=== PATIENT | female | born 1990 | race Two or more races ===

== ENCOUNTER 2023-01-15 23:57 | Emergency (ER) | payer OTHER, SELFPAY ==
--- NOTE | ~2023-01-15 | XR_ITS ---
EXAMINATION: CERVICAL SPINE AND RIGHT SHOULDER CLINICAL INFORMATION: Atraumatic pain COMPARISON: None available. TECHNIQUE: 5 views cervical spine, 3 views right shoulder FINDINGS: C-spine: There is reversal of the normal cervical lordosis. No prevertebral soft tissue swelling, fractures or subluxations are seen. There is some minimal disc space narrowing at C5-C6. Right shoulder: No bone, joint or soft tissue abnormality is seen. XR/XR cervical spine 3V IMPRESSION: 1. Mild degenerative changes C5-C6 with reversal of normal cervical lordosis. 2. Normal right shoulder.
--- NOTE | ~2023-01-15 | XR_ITS ---
EXAMINATION: CERVICAL SPINE AND RIGHT SHOULDER CLINICAL INFORMATION: Atraumatic pain COMPARISON: None available. TECHNIQUE: 5 views cervical spine, 3 views right shoulder FINDINGS: C-spine: There is reversal of the normal cervical lordosis. No prevertebral soft tissue swelling, fractures or subluxations are seen. There is some minimal disc space narrowing at C5-C6. Right shoulder: No bone, joint or soft tissue abnormality is seen. XR/XR shoulder RT min 2V IMPRESSION: 1. Mild degenerative changes C5-C6 with reversal of normal cervical lordosis. 2. Normal right shoulder.
[2023-01-15 23:58] VITALS: BP 177/104; PULSE 100; RESP 16; TEMP 37.1; O2SAT 100; BMI 46.5
--- NOTE | 2023-01-16 00:19 | ED_ITS ---
HPI - Extremity Problem General Chief complaint: Extremity Injury, Upper Stated complaint: Neck/Shoulder pain Time Seen by Provider: 01/16/23 00:19 Source: patient Mode of arrival: ambulatory Limitations: no limitations History of Present Illness HPI Narrative: Patient with no significant past medical history noticed pain in the right side of the neck and the shoulder since early today no known trauma says that she has been working every day pain increases on abduction of the right arm no paresthesia no muscle weakness patient has a history of hypertension for last 15 years not compliant to her medication last time patient to medication was more than a month ago supposed to be on 5 mg of amlodipine daily on arrival patient's blood pressure was elevated 177/104 patient denies any chest pain or headache or nausea/ vomiting Related Data Previous Rx's Medication Instructions Recorded amlodipine 5 mg tablet 5 mg PO DAILY #90 tabs 01/16/23 cyclobenzaprine 10 mg tablet 10 mg PO Q8H #20 tabs 01/16/23 ibuprofen 600 mg tablet 600 mg PO Q6H PRN fever or pain 01/16/23 #30 tabs Allergies Allergy/AdvReac Type Severity Reaction Status Date / Time No Known Allergies Allergy Verified 01/16/23 00:24 Review of Systems Review of Systems: Yes all other systems are reviewed and are negative [facility] Social History Social History Smoked in Last 30 Days: No Use of substances other than those prescribed or required for medical reasons: No Advance Directives: No Advance Directives Information Provided: Yes Patient : No Physical Exam Vital Signs: Vital Signs: Last Vital Signs Temp 98.7 F 01/15/23 23:58 Pulse 100 01/15/23 23:58 Resp 16 01/15/23 23:58 BP 177/104 H 01/15/23 23:58 Pulse Ox 100 01/15/23 23:58 O2 Del Method Room Air 01/15/23 23:58 BMI result Body Mass Index 46.5 Appearance: Alert. Oriented X3. No acute distress. Eyes: PERRLA, No Nystagmus ENT: Pharynx normal. Oral Mucosa moist Neck: Normal inspection. Neck supple. No midline tenderness tenderness of the right sternocleidomastoid muscle with spasm CVS: Normal heart rate and rhythm. Pulses normal. Respiratory: No respiratory distress. Equal air entry bilateral, no wheezing/rales/rhonchi Abdomen: Soft and nontender. Bowel sounds are present, no mass palpable, no CVA tenderness Skin: Skin warm and dry. Normal skin color. Normal skin turgor. Extremities: No lower extremity edema. No calf tenderness right rotator cuff tenderness painful abduction about 90 degrees good range of movement otherwise Neuro: Oriented X 3. No motor deficit. No sensory deficit.No cerebellar signs , cranial nerves II-XII intact Medications Administered Discontinued Medications Generic Name Dose Route Start Last Admin Trade Name Freq PRN Reason Stop Dose Admin Cyclobenzaprine HCl 10 mg 01/16/23 00:24 01/16/23 00:57 Cyclobenzaprine Hcl 10 Mg Tablet PO 01/16/23 00:25 10 mg ONCE ONE Administration Ketorolac Tromethamine 60 mg 01/16/23 00:24 01/16/23 00:57 Ketorolac Tromethamine 60 Mg/2 Ml Vial IM 01/16/23 00:25 60 mg ONCE ONE Administration Medical Decision Making Medical Decision Making [facility] Narrative: X-ray negative for acute smiled cervical arthritis will discharge patient home on muscle relaxants and pain medication Differential Diagnosis Differential Diagnoses: The differential diagnosis associated with the presentation includes Rotator cuff tendinitis/torticollis/painful arc syndrome Radiology Impression Discussion of test interpretation with radiology: I have reviewed the radiologist's reading. Discharge Plan Discharge Clinical Impression: Cervical arthritis, Muscle strain of right shoulder, Hypertension Patient Disposition: Home, Self-Care Instructions: Muscle Strain (ED), Chronic Hypertension (ED), Neck Pain (ED) Additional Instructions: Take pain medication and muscle relaxant as prescribed Take blood pressure medication daily Check blood pressure before taking the medicine and before going to bed it should be less than 135/85 Follow with PCP as needed [place] analg?sicos y relajantes musculares seg?n lo prescrito. [place] medicamentos para la presi?n arterial diariamente Controle la presi?n arterial antes de roxy el medicamento y antes de acostarse debe ser inferior a 135/85. Siga con PCP seg?n sea necesario Prescriptions: New cyclobenzaprine 10 mg tablet 10 mg PO Q8H Qty: 20 0RF ibuprofen 600 mg tablet 600 mg PO Q6H PRN (Reason: fever or pain) Qty: 30 0RF amlodipine 5 mg tablet 5 mg PO DAILY Qty: 90 2RF Stand Alone Forms: Work/School Release Print Language: Chilean
[2023-01-16] MEDS: Ketorolac Tromethamine 60 MG/2 ML VIAL IM (00:57)
[2023-01-16] MEDS: Cyclobenzaprine HCl 10 MG TABLET PO (00:57)
[2023-01-16] MEDS: amLODIPine Besylate 5 MG TABLET PO (01:21)
[2023-01-16 01:22] VITALS: BP 148/99
== END 2023-01-16 01:25 | disposition home or self-care (01) ==
PROVIDERS: Emergency Provider Internal Medicine; PCP Internal Medicine
DX: M47.892 Other spondylosis, cervical region (principal); S46.911A Strain of unspecified muscle, fascia and tendon at shoulder and upper arm level, right arm, initial encounter; I10 Essential (primary) hypertension; E66.9 Obesity, unspecified; Z68.42 Body mass index [BMI] 45.0-49.9, adult; X58.XXXA Exposure to other specified factors, initial encounter; Y93.9 Activity, unspecified; Y92.9 Unspecified place or not applicable; Y99.9 Unspecified external cause status
CPT/HCPCS: 72040; 73030; 96372; 99284; J1885

== ENCOUNTER 2023-02-12 08:02 | Emergency (ER) | payer OTHER, SELFPAY ==
[2023-02-12 08:12] VITALS: BP 158/106; PULSE 100; RESP 18; TEMP 36.6; O2SAT 100; BMI 44.6
--- NOTE | 2023-02-12 09:08 | ED_ITS ---
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 She takes advil with some relief. Has no followed up with her PCP MD complaint: neck pain Onset (ago): week(s) Place: work Radiation: right lateral Severity: moderate Quality: sharp and stabbing Duration: intermittent Relieving factors: medication OTC/prescribed and remaining still Exacerbating factors: movement of extremity and movement of neck Context: lifting and other (movements at work) Associated symptoms: none Treatments prior to arrival: ibuprofen Related Data Previous Rx's Medication Instructions Recorded amlodipine 5 mg tablet 5 mg PO DAILY #90 tabs 01/16/23 cyclobenzaprine 10 mg tablet 10 mg PO Q8H #20 tabs 01/16/23 ibuprofen 600 mg tablet 600 mg PO Q6H PRN fever or pain 01/16/23 #30 tabs cyclobenzaprine 10 mg tablet 10 mg PO TID PRN muscle spasm #20 02/12/23 tabs lidocaine 5 % topical patch 1 patch topical DAILY #30 ea 02/12/23 Allergies Allergy/AdvReac Type Severity Reaction Status Date / Time No Known Allergies Allergy Verified 02/12/23 08:14 Review of Systems Review of Systems: Constitutional : No Fever, No Chills ENT/Mouth : No Ear Pain, No Hoarseness, No sore throat Eyes: No Eye Pain, No Swelling, No Redness, No Foreign Body Cardiovascular : No Chest Pain, No SOB Respiratory : No Cough, No Dyspnea Gastrointestinal : No Nausea, No Vomiting, No Diarrhea, No abdominal Pain Genitourinary : No Dysuria, No Hematuria Musculoskeletal : positive neck pain, No Myalgias, No Joint Swelling Skin : No Skin lacerations, No rash Neuro : No Weakness, No Numbness, No Loss of Consciousness, No Dizziness, No Headache All other systems reviewed and are negative [facility] Past Medical History Source: old records reviewed Medical History Hypertension Cervical radiculopathy Social History Social History (Updated 02/12/23 @ 09:16 by Rae Hayward DO) Patient Tobacco Use Status: Never used Tobacco Physical Exam Vital Signs: Vital Signs: Last Vital Signs Temp 97.8 F 02/12/23 08:12 Pulse 100 02/12/23 08:12 Resp 18 02/12/23 08:12 BP 158/106 H 02/12/23 08:12 Pulse Ox 100 02/12/23 08:12 O2 Del Method Room Air 02/12/23 08:12 BMI result Body Mass Index 44.6 Appearance: Alert. Oriented X3. No acute distress. Eyes: Pupils equal, round and reactive to light. ENT: Pharynx normal. Neck: R lateral trapezius ttp reproduces pain, RUE intact NV CVS: Normal heart rate and rhythm. Pulses normal. Respiratory: No respiratory distress. Abdomen: Soft and nontender. Skin: Skin warm and dry. Normal skin color. Extremities: No lower extremity edema. Neuro: Oriented X 3. No motor deficit. No sensory deficit. Medical Decision Making Medical Decision Making MDM Narrative: 32 yo female with known cervical disease, HTN here with recurrent R neck pain from motions at work - it is over trapezius has no neuro deficits doubt vert artery dissection. At this time will start on medications, give work note and refer to PCP for PT and follow up. Given precautions to return. Differential Diagnosis Differential Diagnoses: The differential diagnosis associated with the presentation includes cervical radiculopathy, spasm, strain Admission/Observation Consideration of admission/observation: Escalation of care including admission/observation considered NV intact can be managed by PCP and treated as outpatient Independent Interpretation I performed an independent interpretation of an: Plain X-Ray Radiology Impression Discussion of test interpretation with radiology: I have reviewed the radiologist's reading. External Record Review External record reviewed: Inpatient record Chronic Conditions Patient?s care impacted by: Other Discharge Plan Discharge Clinical Impression: Cervical radiculopathy, Strain of neck muscle Patient Disposition: Home, Self-Care Instructions: Cervical Strain (DC), Cervical Radiculopathy (ED) Additional Instructions: you need to speak to your doctor about your neck pain and get physical therapy. please call today. return for numbness, weakness, fevers or any other concerns debe hablar con lynn m?dico sobre lynn dolor de fabián y recibir fisioterapia. por favor maria a montesinosy. Regrese por entumecimiento, debilidad, fiebre o cualquier otra inquietud. Prescriptions: New cyclobenzaprine 10 mg tablet 10 mg PO TID PRN (Reason: muscle spasm) Qty: 20 0RF lidocaine 5 % adhesive patch,medicated 1 patch topical DAILY Qty: 30 0RF Rx Instructions: leave on most painful area for up to 12 hrs No Action cyclobenzaprine 10 mg tablet 10 mg PO Q8H Qty: 20 0RF ibuprofen 600 mg tablet 600 mg PO Q6H PRN (Reason: fever or pain) Qty: 30 0RF amlodipine 5 mg tablet 5 mg PO DAILY Qty: 90 2RF Stand Alone Forms: Work/School Release Print Language: Bulgarian
== END 2023-02-12 09:21 | disposition home or self-care (01) ==
PROVIDERS: Emergency Provider Emergency Medicine; PCP Internal Medicine
DX: M54.12 Radiculopathy, cervical region (principal); S16.1XXA Strain of muscle, fascia and tendon at neck level, initial encounter; X58.XXXA Exposure to other specified factors, initial encounter; Y93.9 Activity, unspecified; Y92.9 Unspecified place or not applicable; Y99.9 Unspecified external cause status; M54.2 Cervicalgia; I10 Essential (primary) hypertension
CPT/HCPCS: 99282; 99283

== ENCOUNTER 2023-04-05 23:49 | Emergency (ER) | payer OTHER, SELFPAY ==
[2023-04-06 00:22] VITALS: BP 169/99; PULSE 104; RESP 20; TEMP 36.1; O2SAT 98; BMI 46.3
[2023-04-06 02:08] VITALS: BP 184/116; PULSE 102; RESP 19; TEMP 37.1; O2SAT 98
--- NOTE | 2023-04-06 02:48 | PC.NURSE ---
training officer at bedside. pt reporting onset of cough, chest pain, chest tightness and sore throat for one day. pt denies being around sick contacts. pt denies phlegm with cough. pt denies n/v/d. pt lung sounds clear bilaterally.
[2023-04-06 02:53] VITALS: O2SAT 98
[2023-04-06 03:50] VITALS: BP 166/74; PULSE 101; RESP 16; TEMP 37.2; O2SAT 97
--- NOTE | 2023-04-06 05:04 | ED.URI ---
HPI - URI/Sore Throat General Chief Complaint: Upper Respiratory Symptoms Stated Complaint: Upper Resp Time Seen by Provider: 04/06/23 04:59 Source: patient Mode of arrival: ambulatory Limitations: no limitations History of Present Illness HPI Narrative: Patient comes to the emergency room complaining of subjective fever, coughing, nasal congestion. No vomiting or diarrhea. No shortness of breath other than the nasal congestion Related Data Previous Rx's Medication Instructions Recorded amlodipine 5 mg tablet 5 mg PO DAILY #90 tabs 01/16/23 cyclobenzaprine 10 mg tablet 10 mg PO Q8H #20 tabs 01/16/23 ibuprofen 600 mg tablet 600 mg PO Q6H PRN fever or pain 01/16/23 #30 tabs cyclobenzaprine 10 mg tablet 10 mg PO TID PRN muscle spasm #20 02/12/23 tabs lidocaine 5 % topical patch 1 patch topical DAILY #30 ea 02/12/23 fluticasone propionate 50 1 spray intranasal Q12H #16 grams 04/06/23 mcg/actuation nasal spray,suspension (Flonase Allergy Relief) guaifenesin 400 mg tablet 400 mg PO Q4H PRN cough #14 tabs 04/06/23 Allergies Allergy/AdvReac Type Severity Reaction Status Date / Time No Known Allergies Allergy Verified 02/12/23 08:14 Review of Systems Review of Systems: Constitutional : No Weight loss complaining of subjective fever and chills, No Night Sweats, No Fatigue, No Malaise ENT/Mouth : No Hearing loss, No Ear Pain, complaining of Nasal Congestion, No Sinus Pain, No Hoarseness, No sore throat, No Rhinorrhea, No Swallowing Difficulty Eyes: No Eye Pain, No Swelling, No Redness, No Foreign Body, No Discharge, No Vision Changes Cardiovascular : No Chest Pain, No SOB, No Dyspnea on Exertion, No Orthopnea, No Edema, No Palpitations Respiratory : No Cough, No Sputum, No Wheezing, No Smoke Exposure, No Dyspnea Gastrointestinal : No Nausea, No Vomiting, No Diarrhea, No Constipation, No abdominal Pain, No Hematochezia, No Melena Genitourinary : no irregular bleeding, No Dysuria, No Urinary Frequency, No Hematuria, No Urinary Incontinence, No Urgency, No Flank Pain, No Urinary Flow Changes, No Hesitancy Musculoskeletal : No joint pain, No Myalgias, No Joint Swelling Skin : No Skin Lesions, No rash Neuro : No Weakness, No Numbness, No Paresthesias, No Loss of Consciousness, No Dizziness, complaining of head pressure, mild Headache Psych : No Anxiety/Panic, No Depression, No SI/HI/AH/VH, No Social Issues, Heme/Lymph: No Bruising, No Bleeding,No Lymphadenopathy Endocrine : No Polyuria, No Polydipsia, No Temperature Intolerance PMFSH Past Medical History Onset Date is defined in the Problem List Problems that require an onset date and time if occurred within 24 hrs of arrival to the ED Aortic Dissection and Rupture; Neurologic impairment; Cardiopulmonary Arrest; Endotracheal Intubation; Insertion or Replacement of Mechanical Circulatory Assist Device Medical History Hypertension Cervical radiculopathy Social History Social History (Updated 02/12/23 @ 09:16 by Rae Hayward DO) Alcohol intake: current Alcohol intake frequency: a few times a month Alcohol type: beer Patient Tobacco Use Status: Never used Tobacco Smoked in Last 30 Days: No Use of substances other than those prescribed or required for medical reasons: No Advance Directives: No Advance Directives Information Provided: No Patient : No Physical Exam Vital Signs: Vital Signs: Last Vital Signs Temp 98.9 F 04/06/23 03:50 Pulse 101 H 04/06/23 03:50 Resp 16 04/06/23 03:50 BP 166/74 H 04/06/23 03:50 Pulse Ox 97 04/06/23 03:50 O2 Del Method Room Air 04/06/23 03:50 BMI result Body Mass Index 46.3 Const: Other: Appearance: Alert. Oriented X3. No acute distress. Eyes: Pupils equal, round and reactive to light. ENT: Pharynx normal. Positive nasal congestion Neck: Normal inspection. Neck supple. No lymph nodes noted. No crepitus CVS: Normal heart rate and rhythm. Pulses normal. Normal S1 and S2 Respiratory: No respiratory distress. Breath sounds normal. No Wheezing. No rales Abdomen: Soft and nontender. No rigidity. No distention. Skin: Skin warm and dry. Normal skin color. Normal skin turgor. Extremities: No lower extremity edema. No Lacerations. No Rash Neuro: Oriented X 3. No motor deficit. No sensory deficit. Moving all extremities. No slurred speech. CN 2 through 12 grossly intact Psych: calm, cooperative, normal affect Medical Decision Making Medical Decision Making MDM Narrative: -patient's lungs are completely clear -my interpretation of labs: Negative for flu RSV and COVID -my interpretation of chest x-ray: No infiltrate Differential Diagnosis Differential Diagnoses: The differential diagnosis associated with the presentation includes (Viral URI) Lab Data [facility] Lab Attestation statement: I reviewed the patient's lab results. Labs: Lab Results 04/06/23 Range/Units 00:38 Influenza Type A (PCR) NEGATIVE (Negative) Influenza Type B (PCR) NEGATIVE (Negative) RSV RNA Qual (PCR) NEGATIVE (Negative) SARS-CoV-2 RNA (RT-PCR) NEGATIVE (Negative) Radiology Impression Discussion of test interpretation with radiology: I have reviewed the radiologist's reading. Radiologist Impression: No significant abnormality is noted involving the heart, lungs, mediastinum, bony thorax or soft tissues. XR/XR chest 2V IMPRESSION: Unremarkable examination. Discharge Plan Discharge Clinical Impression: Acute viral bronchitis Patient Disposition: Home, Self-Care Instructions: Acute Bronchitis (ED) Additional Instructions: Please follow-up with your primary care physician tomorrow. If you have any worsening or new symptoms, please return to the emergency room or call 911 Prescriptions: New guaifenesin 400 mg tablet 400 mg PO Q4H PRN (Reason: cough) Qty: 14 0RF fluticasone propionate [Flonase Allergy Relief] 50 mcg/actuation spray,suspension 1 spray intranasal Q12H Qty: 16 0RF Rx Instructions: administer into each nostril No Action cyclobenzaprine 10 mg tablet 10 mg PO Q8H Qty: 20 0RF ibuprofen 600 mg tablet 600 mg PO Q6H PRN (Reason: fever or pain) Qty: 30 0RF amlodipine 5 mg tablet 5 mg PO DAILY Qty: 90 2RF cyclobenzaprine 10 mg tablet 10 mg PO TID PRN (Reason: muscle spasm) Qty: 20 0RF lidocaine 5 % adhesive patch,medicated 1 patch topical DAILY Qty: 30 0RF Rx Instructions: leave on most painful area for up to 12 hrs Stand Alone Forms: Work/School Release
--- NOTE | 2023-04-06 05:17 | PC.NURSE ---
Took over care at 3:15am, reivewed discharge instructions with pt, pt verbalized understanding, no sign of distress upon discharge.
== END 2023-04-06 05:18 | disposition home or self-care (01) ==
PROVIDERS: Emergency Provider Emergency Medicine
DX: J20.8 Acute bronchitis due to other specified organisms (principal); R05.9 Cough, unspecified; Z20.822 Contact with and (suspected) exposure to COVID-19; Z20.828 Contact with and (suspected) exposure to other viral communicable diseases
CPT/HCPCS: 0241U; 71046; 99283; 99284

== ENCOUNTER → 2023-04-18 14:32 | Outpatient (BNVA) | payer OTHER, SELFPAY | PROVIDERS: Visit Provider Physician Assistant Surgical ==

== ENCOUNTER 2023-05-06 19:56 | Emergency (ER) | payer OTHER, SELFPAY ==
--- NOTE | ~2023-05-06 | US_ITS ---
EXAMINATION: US OBSTETRICAL ULTRASOUND CLINICAL INFORMATION: , lower abdominal pain COMPARISON: None available. TECHNIQUE: Sonographic evaluation of the pelvis was performed transabdominally and transvaginally. FINDINGS: Uterus measures 12.4 x 6.4 x 7.3 cm. There is a fluid collection along the endometrium measuring 1.1 x 0.6 x 1.2 cm which appears to contain a yolk sac, therefore favored to represent a gestational sac with mean diameter of 1.0 cm (5 weeks 4 days gestational age). No pole is seen at this time. The right ovary measures 4.4 x 2.6 x 2.9 cm. Cystic structure in the right ovary measuring up to 2.9 cm is favored to represent a corpus luteal cyst. The left ovary measures 3.3 x 2.3 x 2.8 cm and appears unremarkable. No free fluid is seen. US/US OB pelvic and transvaginal IMPRESSION: Structure likely representing a gestational sac along the endometrium, with mean diameter corresponding to gestational age of 5 weeks 4 days (estimated date of delivery 01/03/2024). No pole is seen at this time, which may be due to the early stage of . Short-term follow-up is recommended to assess for development of a pole.
[2023-05-06 20:01] VITALS: BP 154/85; PULSE 97; RESP 18; TEMP 36.4; O2SAT 99; BMI 47.1
[2023-05-06 20:27] LABS: MANUAL DIFF FLAG NO
[2023-05-06 20:28] LABS: Basophils Percent Auto 0.5 % (0-2); Eosinophils Absolute Auto 0.2 X10*3/uL (0.0-0.4); Eosinophils Percent Auto 2.2 % (0-4); Hematocrit 35.4 % (37.0-47.0); Hemoglobin 11.4 g/dl (12.0-16.0); Imm Gran Abs Auto 0.02 X10*3/uL (0.00-0.03); Imm Gran Pct Auto 0.3 % (0.0-0.4); Lymphocytes Absolute Auto 2.1 X10*3/uL (1.2-4.9); Mean Corpuscular HGB Conc 32.2 g/dl (31.0-35.0); Mean Corpuscular Hemoglobin 26.6 pg (27.0-33.0); Mean Corpuscular Volume 82.5 fL (80.0-98.0); Mean Platelet Volume 12.3 fL (9.4-12.3); Monocytes Absolute Auto 0.4 X10*3/uL (0.1-1.2); Monocytes Percent Auto 5.2 % (2-11); Neutrophils Absolute Auto 4.7 x10*3/uL (2.0-8.3); Neutrophils Percent Auto 63.8 % (45-73); Platelet Count 207 X10*3/uL (160-400); Red Blood Count 4.29 X10*6/uL (4.20-5.50); White Blood Count 7.3 X10*3/uL (4.8-10.8)
[2023-05-06 20:30] LABS: Appearance Urine Clear; Color Urine Yellow; Glucose Urine UA Negative (Negative); Leukocyte Esterase Urine Negative (Negative); Nitrite Urine Negative (Negative); Urine Blood Negative (Negative); Urine Ketones Negative (Negative); Urine Protein Negative (Neg-Trace)
[2023-05-06 20:31] LABS: UPreg QC Valid YES; Urine Pregnancy POSITIVE (NEGATIVE)
[2023-05-06 20:42] LABS: Alanine Aminotransferase 17 U/L (0-31); Alkaline Phosphatase 86 U/L (39-117); Anion Gap 10 (12-20); Aspartate Amino Transferase 13 U/L (5-31); Bilirubin Direct < 0.2 mg/dL (0.0-0.5); Bilirubin Total 0.2 mg/dL (0.0-1.0); Blood Urea Nitrogen 10 mg/dL (9-16); Calcium 8.8 mg/dL (8.4-10.2); Carbon Dioxide 24 mmol/L (22-29); Chloride 108 mmol/L (96-108); Creatinine Clr Calc Pharmacy 137.8; Estimated Glomerular Filt Rate > 60; Glucose Random 95 mg/dL (60-115); Lipase 20 U/L (8-78); Potassium 3.8 mmol/L (3.3-5.1); Sodium 138 mmol/L (135-145); Total Protein 7.3 g/dL (6.5-8.0)
[2023-05-07 00:05] VITALS: BP 155/84; PULSE 95; RESP 18; TEMP 36.5; O2SAT 100
[2023-05-07 02:33] VITALS: BP 163/97; PULSE 103; RESP 16; TEMP 36.6; O2SAT 100
--- NOTE | 2023-05-07 02:34 | ED_ITS ---
HPI - Abdominal Pain General Chief Complaint: Abdominal Pain Stated Complaint: abd pain,nausea Time Seen by Provider: 05/07/23 02:26 Source: patient and medical interpreter Mode of arrival: ambulatory Limitations: no limitations History of Present Illness HPI narrative: 32 yo female with PMH of HTN no surgeries LMP 03/28 states she is with one living child is not very forthcoming with prior OB history presents with late LMP and lower suprapubic pain that came out of nowhere that started 1 hour prior to coming to the ER she denies bleeding, hx of ovarian cyst or ectopic . MD elicited complaint: abdominal pain Pertinent past history: other (+ test in ED) Onset (ago): day(s) (yesterday 8pm) Pain Consistency: constant Location: suprapubic Severity: moderate Quality: aching Radiation: none Migration to: no migration Exacerbating factors: movement Relieving factors: nothing Context: other (late on menses) Associated symptoms: denies other symptoms Related Data Previous Rx's Medication Instructions Recorded amlodipine 5 mg tablet 5 mg PO DAILY #90 tabs 01/16/23 cyclobenzaprine 10 mg tablet 10 mg PO Q8H #20 tabs 01/16/23 ibuprofen 600 mg tablet 600 mg PO Q6H PRN fever or pain 01/16/23 #30 tabs cyclobenzaprine 10 mg tablet 10 mg PO TID PRN muscle spasm #20 02/12/23 tabs lidocaine 5 % topical patch 1 patch topical DAILY #30 ea 02/12/23 fluticasone propionate 50 1 spray intranasal Q12H #16 grams 04/06/23 mcg/actuation nasal spray,suspension (Flonase Allergy Relief) guaifenesin 400 mg tablet 400 mg PO Q4H PRN cough #14 tabs 04/06/23 vitamin#30 30 mg iron-10 1 cap PO DAILY #30 caps 05/07/23 mg iron-folic acid 1 mg-omg3 capsule Allergies Allergy/AdvReac Type Severity Reaction Status Date / Time No Known Allergies Allergy Verified 02/12/23 08:14 Review of Systems Review of Systems Constitutional : No Weight loss, No Fever, No Chills ENT/Mouth : No sore throat, No Rhinorrhea Eyes: No Swelling, No Redness Cardiovascular : No Chest Pain, No SOB, NoEdema Respiratory : No Cough, No Sputum, No Wheezing Gastrointestinal : no Nausea, no Vomiting, no Diarrhea, positive abdominal Pain, No Hematochezia, No Melena Genitourinary : No Dysuria, No Urinary Frequency, No Hematuria, No Urgency Musculoskeletal : No joint pain, No Myalgias, No Joint Swelling Skin : No Skin Lesions, No rash Neuro : No Weakness, No Numbness, No Dizziness, No Headache Psych : No Anxiety/Panic, No Depression All other systems reviewed and are negative. [facility] Past Medical History Attestation statement: The following information was validated with the patient. Source: old records reviewed Medical History Hypertension Cervical radiculopathy Social History Social History Alcohol intake: current Alcohol intake frequency: a few times a month Alcohol type: beer Patient Tobacco Use Status: Never used Tobacco Advance Directives: No Advance Directives Information Provided: No Physical Exam ED Vital Signs: Vital Signs - 24 hr 05/06/23 20:01 05/07/23 00:05 05/07/23 02:33 Temperature 97.6 F 97.7 F 97.9 F Pulse Rate 97 95 103 H Respiratory Rate 18 18 16 Blood Pressure 154/85 H 155/84 H 163/97 H Pulse Oximetry 99 100 100 Oxygen Delivery Method Room Air Room Air Room Air BMI result Body Mass Index 47.1 Appearance: Alert. Oriented X3. No acute distress. Eyes: Pupils equal, round and reactive to light. ENT: Pharynx normal. Neck: Normal inspection. Neck supple. CVS: Normal heart rate and rhythm. Pulses normal. Respiratory: No respiratory distress. Breath sounds normal. Abdomen: Soft and mild epigastric ttp no rebound Skin: Skin warm and dry. Normal skin color. Normal skin turgor. Extremities: No lower extremity edema. No calf ttp Neuro: Oriented X 3. No motor deficit. No sensory deficit. Medical Decision Making Medical Decision Making MDM Narrative: 32 yo female with PMH of HTN, no prior ectopic no ovarian cyst here with c/o lower abdominal pain that started out of nowhere around 8pm VS are stable H/H is stable will need UA, quant and pelvic US to evaluate for cyst/ectopic Differential Diagnosis Differential Diagnoses: The differential diagnosis associated with the presentation includes UTI, cyst, ectopic Admission/Observation Consideration of admission/observation: Escalation of care including admission/observation considered H/H stable no ectopic Lab Data MDM Lab Attestation statement: I reviewed the patient's lab results. 05/06/23 20:16 05/06/23 20:16 Labs: Lab Results 05/06/23 Range/Units 20:16 WBC 7.3 (4.8-10.8) X10*3/uL RBC 4.29 (4.20-5.50) X10*6/uL Hgb 11.4 L (12.0-16.0) g/dl Hct 35.4 L (37.0-47.0) % MCV 82.5 (80.0-98.0) fL MCH 26.6 L (27.0-33.0) pg MCHC 32.2 (31.0-35.0) g/dl RDW 13.0 (11.0-16.0) % Plt Count 207 (160-400) X10*3/uL MPV 12.3 (9.4-12.3) fL Immature Gran % (Auto) 0.3 (0.0-0.4) % Neut % (Auto) 63.8 (45-73) % Lymph % (Auto) 28.0 (20-40) % [place] % (Auto) 5.2 (2-11) % Eos % (Auto) 2.2 (0-4) % Baso % (Auto) 0.5 (0-2) % Lymph # (Auto) 2.1 (1.2-4.9) X10*3/uL [place] # (Auto) 0.4 (0.1-1.2) X10*3/uL Eos # (Auto) 0.2 (0.0-0.4) X10*3/uL Baso # (Auto) 0.0 (0.0-0.2) X10*3/uL Abs Immat Gran (auto) 0.02 (0.00-0.03) X10*3/uL Absolute Neuts (auto) 4.7 (2.0-8.3) x10*3/uL Absolute Nucleated RBC 0.000 (0.0-0.012) X10*3/uL Nucleated RBC % (auto) 0.0 (0.0-0.2) /100WBC Sodium 138 (135-145) mmol/L Potassium 3.8 (3.3-5.1) mmol/L Chloride 108 (96-108) mmol/L Carbon Dioxide 24 (22-29) mmol/L Anion Gap 10 L (12-20) BUN 10 (9-16) mg/dL Creatinine 0.75 (0.5-1.4) mg/dL Estim Creat Clear Calc 137.8 Estimated GFR > 60 Random Glucose 95 (60-115) mg/dL Calcium 8.8 (8.4-10.2) mg/dL Total Bilirubin 0.2 (0.0-1.0) mg/dL Direct Bilirubin < 0.2 (0.0-0.5) mg/dL AST 13 (5-31) U/L ALT 17 (0-31) U/L Alkaline Phosphatase 86 (39-117) U/L Total Protein 7.3 (6.5-8.0) g/dL Albumin 4.0 (3.5-5.0) g/dL Lipase 20 (8-78) U/L Beta HCG, Quant 6198 mIU/mL Urine Color Yellow Urine Appearance Clear Urine pH 8.0 (5.0-9.0) Ur Specific [place] 1.020 (1.005-1.025) Urine Protein Negative (Neg-Trace) mg/dL Urine Glucose (UA) Negative (Negative) mg/dL Urine Ketones Negative (Negative) mg/dL Urine Blood Negative (Negative) Urine Nitrite Negative (Negative) Ur Leukocyte Esterase Negative (Negative) Urine Test POSITIVE H (NEGATIVE) Independent Interpretation I performed an independent interpretation of an: Ultrasound (cyst early ges sac) Radiology Impression Discussion of test interpretation with radiology: I have reviewed the radiologist's reading. External Record Review External record reviewed: Inpatient record Medications Administered Discontinued Medications Generic Name Dose Route Start Last Admin Trade Name Freq PRN Reason Stop Dose Admin Acetaminophen 975 mg 05/07/23 02:33 05/07/23 02:37 Acetaminophen 325 Mg Tablet PO 05/07/23 02:34 975 mg ONCE ONE Administration Discharge Plan Discharge Clinical Impression: Early stage of Ovarian cyst Qualifiers: Laterality: right Qualified Code(s): N83.201 - Unspecified ovarian cyst, right side Patient Disposition: Home, Self-Care Instructions: (ED), Ovarian Cyst (ED) Additional Instructions: return for worsening pain, vaginal bleeding, fainting, dizziness call [facility] to get OBGYN appointment - repeat hormone level and US in the next 5 days. Regrese si el dolor empeora, sangrado vaginal, desmayos, mareos. Llame a Stephanie para programar david mamta con el obstetra y ginec?logo; repita el nivel hormonal y los EE. UU. en los pr?ximos 5 d?as quant was 6198 FINDINGS: Uterus measures 12.4 x 6.4 x 7.3 cm. There is a fluid collection along the endometrium measuring 1.1 x 0.6 x 1.2 cm which appears to contain a yolk sac, therefore favored to represent a gestational sac with mean diameter of 1.0 cm (5 weeks 4 days gestational age). No pole is seen at this time. The right ovary measures 4.4 x 2.6 x 2.9 cm. Cystic structure in the right ovary measuring up to 2.9 cm is favored to represent a corpus luteal cyst. The left ovary measures 3.3 x 2.3 x 2.8 cm and appears unremarkable. No free fluid is seen. US/US OB pelvic and transvaginal IMPRESSION: Structure likely representing a gestational sac along the endometrium, with mean diameter corresponding to gestational age of 5 weeks 4 days (estimated date of delivery 01/03/2024). No pole is seen at this time, which may be due to the early stage of . Short-term follow-up is recommended to assess for development of a pole. Prescriptions: New PNV #[id number] acid-omega3 30 mg iron-10 mg iron-1 mg capsule 1 cap PO DAILY Qty: 30 2RF No Action cyclobenzaprine 10 mg tablet 10 mg PO Q8H Qty: 20 0RF ibuprofen 600 mg tablet 600 mg PO Q6H PRN (Reason: fever or pain) Qty: 30 0RF amlodipine 5 mg tablet 5 mg PO DAILY Qty: 90 2RF cyclobenzaprine 10 mg tablet 10 mg PO TID PRN (Reason: muscle spasm) Qty: 20 0RF lidocaine 5 % adhesive patch,medicated 1 patch topical DAILY Qty: 30 0RF Rx Instructions: leave on most painful area for up to 12 hrs guaifenesin 400 mg tablet 400 mg PO Q4H PRN (Reason: cough) Qty: 14 0RF fluticasone propionate [Flonase Allergy Relief] 50 mcg/actuation spray,suspension 1 spray intranasal Q12H Qty: 16 0RF Rx Instructions: administer into each nostril Print Language: [place]
[2023-05-07] MEDS: Acetaminophen 325 MG TABLET 975 MG PO (02:37)
[2023-05-07 02:49] LABS: HCG Quantitative 6198 mIU/mL
[2023-05-07 05:19] VITALS: BP 132/82; PULSE 82; RESP 20; TEMP 36.8; O2SAT 99
--- NOTE | 2023-05-07 05:21 | PC.NURSE ---
pt ambulatory at discharge. vss. pt partner present at bedside. outside salesman utilized at discharge. pt provided with discharge packet pt verbalized understanding of discharge plan
== END 2023-05-07 05:23 | disposition home or self-care (01) ==
PROVIDERS: Emergency Provider Emergency Medicine
DX: N83.201 Unspecified ovarian cyst, right side (principal); R10.2 Pelvic and perineal pain; Z79.899 Other long term (current) drug therapy
CPT/HCPCS: 36415; 76801; 76817; 80048; 80076; 81003; 81025; 83690; 84702; 85025; 99284

== ENCOUNTER 2023-07-12 18:10 | Emergency (ER) | payer OTHER, SELFPAY ==
--- NOTE | ~2023-07-12 | US_ITS ---
EXAMINATION: OBSTETRIC ULTRASOUND - SECOND TRIMESTER CLINICAL INFORMATION: 15 weeks with pain. COMPARISON: Pelvic ultrasound 05/07/2023. TECHNIQUE: Transabdominal imaging of the uterus was performed utilizing garcia scale and color doppler technique, with m-mode imaging. FINDINGS: Single live intrauterine fetus with cardiac activity detected at 149 bpm. movement is present. Posterior placenta. No perigestational hemorrhage. Cervix measures 4.4 cm and is closed. This examination was not obtained for evaluation of a detailed anatomy nor placental morphology. Some of the biometric measurements obtained are as follows: Biparietal diameter: 2.77 cm corresponding to gestational age of 15 weeks. Head circumference: 11.14 cm corresponding to gestational age of 15 weeks and 3 days. Abdominal circumference: 8.98 cm corresponding to a gestational age of 15 weeks and 2 days. Femur length: 1.73 cm corresponding to gestational age of 15 weeks and 1 day. US/US OB limited IMPRESSION: * Single live intrauterine fetus with estimated gestational age by ultrasound of 15 weeks and 1 day. * This evaluation was not targeted for a detail evaluation of the anatomy nor placental morphology, for which referral to a maternofetal specialist is recommended as clinically warranted.
[2023-07-12 18:36] VITALS: BP 156/81; PULSE 112; RESP 16; TEMP 37; O2SAT 100; BMI 49.2
--- NOTE | 2023-07-12 18:36 | ED.FEMALEGU ---
HPI - Female Genitourinary General Chief complaint: Vaginal Bleeding Stated complaint: Pelvic Pain Time Seen by Provider: 07/12/23 20:42 Source: patient, RN notes reviewed and old records reviewed Mode of arrival: ambulatory Limitations: no limitations History of Present Illness HPI Narrative: 32-year-old female presents for evaluation of lower abdominal/pelvic pain. Patient reports that she is approximately 15 weeks . She states that she is She reports that she had a very small amount of bloody vaginal discharge prior to arrival She still complains of 7/10 lower abdominal pain Patient states that she had 3 previous miscarriages and she is concerned that she is having another Denies any fevers, chills, nausea, vomiting No other complaints or concerns at this time Related Data Previous Rx's ?Medication ?Instructions ?Recorded amlodipine 5 mg tablet 5 mg PO DAILY #90 tabs 01/16/23 cyclobenzaprine 10 mg tablet 10 mg PO Q8H #20 tabs 01/16/23 ibuprofen 600 mg tablet 600 mg PO Q6H PRN fever or pain 01/16/23 #30 tabs cyclobenzaprine 10 mg tablet 10 mg PO TID PRN muscle spasm #20 02/12/23 tabs lidocaine 5 % topical patch 1 patch topical DAILY #30 ea 02/12/23 fluticasone propionate 50 1 spray intranasal Q12H #16 grams 04/06/23 mcg/actuation nasal spray,suspension (Flonase Allergy Relief) guaifenesin 400 mg tablet 400 mg PO Q4H PRN cough #14 tabs 04/06/23 vitamin#30 30 mg iron-10 1 cap PO DAILY #30 caps 05/07/23 mg iron-folic acid 1 mg-omg3 capsule Allergies Allergy/AdvReac Type Severity Reaction Status Date / Time No Known Allergies Allergy Verified 07/12/23 18:40 Review of Systems Constitutional: Constitutional: Denies body ache(s), Denies chills and Denies fever(s) Eyes: Eyes: Denies blurry vision ENT: Denies sore throat Cardiovascular: Cardiovascular: Denies chest pain and Denies dyspnea Respiratory: Respiratory: Denies cough and Denies dyspnea Gastrointestinal: Gastrointestinal: Reports abdominal pain, Denies nausea and Denies vomiting Genitourinary: Genitourinary: Reports vaginal discharge (Small amount of blood) Musculoskeletal: Musculoskeletal: Denies back pain Integumentary/Breasts: Skin/Breast: Denies rash PMFSH Past Medical History Medical History Hypertension Cervical radiculopathy Social History Social History Alcohol intake: never Patient Tobacco Use Status: Never used Tobacco Smoked in Last 30 Days: No Use of substances other than those prescribed or required for medical reasons: No Advance Directives: No Advance Directives Information Provided: No Patient : Yes Physical Exam Vital Signs: Vital Signs: Last Vital Signs Temp 97.9 F 07/12/23 20:47 Pulse 111 H 07/12/23 20:47 Resp 19 07/12/23 20:47 BP 159/88 H 07/12/23 20:47 Pulse Ox 100 07/12/23 20:47 O2 Del Method Room Air 07/12/23 20:47 BMI result Body Mass Index 49.2 Const: General: healthy appearing, comfortable, no acute distress, alert and awake Nutritional Appearance: well nourished Orientation/consciousness: patient oriented x3 HEENT: Head: Yes normocephalic and Yes atraumatic Eyes: Eyelids: Yes eyelids normal Conjunctivae: conjunctivae normal Sclerae: sclerae normal Corneas: corneas normal Pupils: Equal, round and reactive pupils present EOM: EOMs intact bilaterally Neck: Neck: Yes full ROM Resp: Effort & Inspection: normal respiratory effort, able to speak in complete sentences and not labored GI: Inspection: No distended Palpation (GI): Soft to palpation, not firm, Tenderness to palpation present (GI) suprapubicly, no guarding and not rigid Skin: General skin exam: elasticity normal Neuro: General: patient oriented x3 Cranial nerves: Yes Equal, round and reactive pupils present and Yes Bilaterally intact EOM present Cognition (Neuro): normal cognition Course Course Course Narrative: This is a Rapid Medical Examination (RME) in triage, full HPI, ROS, assessment and plan per primary provider in the Main ED. 32 yo German speaking female who is currently 15 weeks presents to the ER for evaluation of worsening, intermittent pelvic pains that started yesterday. Currently 7/10 and has been lasting 30+ minutes. No urinary symptoms. Very small amount of vaginal bleeding. 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 Plan: pelvic U/S, labs Medications Administered Discontinued Medications Generic Name Dose Route Start Last Admin Trade Name Racquel PRN Reason Stop Dose Admin Acetaminophen 975 mg 07/12/23 20:56 07/12/23 21:30 Acetaminophen 325 Mg Tablet PO 07/12/23 20:57 975 mg ONCE ONE Administration Medical Decision Making Medical Decision Making [facility] Narrative: 32-year-old female presents for evaluation lower abdominal pain/pelvic pain as well as bloody vaginal discharge. Given her history of multiple miscarriages there is some concern for miscarriage. [place] [address]. No other electrolyte abnormalities. She has no leukocytosis. She has a mild anemia which is likely related to the . There is no left shift. UA and ultrasound pending. Of note, the patient is blood type O negative Differential Diagnosis Differential Diagnoses: The differential diagnosis associated with the presentation includes Yoni Hernandez contractions Miscarriage Threatened miscarriage Lab Data [facility] Lab Attestation statement: I reviewed the patient's lab results. See above 07/12/23 18:49 07/12/23 18:49 Labs: Lab Results 07/12/23 Range/Units 18:49 WBC 7.9 (4.8-10.8) X10*3/uL RBC 3.95 L (4.20-5.50) X10*6/uL Hgb 10.8 L (12.0-16.0) g/dl Hct 32.3 L (37.0-47.0) % MCV 81.8 (80.0-98.0) fL MCH 27.3 (27.0-33.0) pg MCHC 33.4 (31.0-35.0) g/dl RDW 12.8 (11.0-16.0) % Plt Count 170 (160-400) X10*3/uL MPV 12.4 H (9.4-12.3) fL Immature Gran % (Auto) 0.5 H (0.0-0.4) % Neut % (Auto) 71.1 (45-73) % Lymph % (Auto) 21.9 (20-40) % [place] % (Auto) 4.3 (2-11) % Eos % (Auto) 1.8 (0-4) % Baso % (Auto) 0.4 (0-2) % Lymph # (Auto) 1.7 (1.2-4.9) X10*3/uL [place] # (Auto) 0.3 (0.1-1.2) X10*3/uL Eos # (Auto) 0.1 (0.0-0.4) X10*3/uL Baso # (Auto) 0.0 (0.0-0.2) X10*3/uL Abs Immat Gran (auto) 0.04 H (0.00-0.03) X10*3/uL Absolute Neuts (auto) 5.6 (2.0-8.3) x10*3/uL Absolute Nucleated RBC 0.000 (0.0-0.012) X10*3/uL Nucleated RBC % (auto) 0.0 (0.0-0.2) /100WBC Sodium 138 (135-145) mmol/L Potassium 3.6 (3.3-5.1) mmol/L Chloride 108 (96-108) mmol/L Carbon Dioxide 22 (22-29) mmol/L Anion Gap 12 (12-20) BUN 8 L (9-16) mg/dL Creatinine 0.58 (0.5-1.4) mg/dL Estim Creat Clear Calc 183.1 Estimated GFR > 60 Random Glucose 134 H (60-115) mg/dL Calcium 8.6 (8.4-10.2) mg/dL Magnesium 1.8 (1.6-2.6) mg/dL Total Bilirubin 0.1 (0.0-1.0) mg/dL Direct Bilirubin < 0.2 (0.0-0.5) mg/dL AST 14 (5-31) U/L ALT 15 (0-31) U/L Alkaline Phosphatase 61 (39-117) U/L Total Protein 6.8 (6.5-8.0) g/dL Albumin 3.6 (3.5-5.0) g/dL Beta HCG, Quant 08159 mIU/mL Blood Type O Negative Discharge Plan Discharge Clinical Impression: Vaginal bleeding during Patient Disposition: Home, Self-Care Instructions: Threatened Miscarriage (ED) Additional Instructions: Your workup in the emergency department today was reassuring. This includes your blood work and serum level, your ultrasound Given the vaginal bleeding in , you were treated with RhoGAM to prevent complications in future pregnancies Call your OBGYN tomorrow and explain a you went to the ER for pain and bleeding Your ultrasound did not show any concerning abnormalities Prescriptions: No Action cyclobenzaprine 10 mg tablet 10 mg PO Q8H Qty: 20 0RF ibuprofen 600 mg tablet 600 mg PO Q6H PRN (Reason: fever or pain) Qty: 30 0RF amlodipine 5 mg tablet 5 mg PO DAILY Qty: 90 2RF PNV #[id number] acid-omega3 30 mg iron-10 mg iron-1 mg capsule 1 cap PO DAILY Qty: 30 2RF cyclobenzaprine 10 mg tablet 10 mg PO TID PRN (Reason: muscle spasm) Qty: 20 0RF lidocaine 5 % adhesive patch,medicated 1 patch topical DAILY Qty: 30 0RF Rx Instructions: leave on most painful area for up to 12 hrs guaifenesin 400 mg tablet 400 mg PO Q4H PRN (Reason: cough) Qty: 14 0RF fluticasone propionate [Flonase Allergy Relief] 50 mcg/actuation spray,suspension 1 spray intranasal Q12H Qty: 16 0RF Rx Instructions: administer into each nostril Print Language: German
[2023-07-12 18:56] LABS: MANUAL DIFF FLAG NO
[2023-07-12 19:01] LABS: Basophils Percent Auto 0.4 % (0-2); Eosinophils Absolute Auto 0.1 X10*3/uL (0.0-0.4); Eosinophils Percent Auto 1.8 % (0-4); Hematocrit 32.3 % (37.0-47.0); Hemoglobin 10.8 g/dl (12.0-16.0); Imm Gran Abs Auto 0.04 X10*3/uL (0.00-0.03); Imm Gran Pct Auto 0.5 % (0.0-0.4); Lymphocytes Absolute Auto 1.7 X10*3/uL (1.2-4.9); Lymphocytes Percent Auto 21.9 % (20-40); Mean Corpuscular HGB Conc 33.4 g/dl (31.0-35.0); Mean Corpuscular Hemoglobin 27.3 pg (27.0-33.0); Mean Corpuscular Volume 81.8 fL (80.0-98.0); Mean Platelet Volume 12.4 fL (9.4-12.3); Monocytes Absolute Auto 0.3 X10*3/uL (0.1-1.2); Monocytes Percent Auto 4.3 % (2-11); Neutrophils Absolute Auto 5.6 x10*3/uL (2.0-8.3); Neutrophils Percent Auto 71.1 % (45-73); Platelet Count 170 X10*3/uL (160-400); Red Blood Count 3.95 X10*6/uL (4.20-5.50); Red Cell Distribution Width 12.8 % (11.0-16.0); White Blood Count 7.9 X10*3/uL (4.8-10.8)
[2023-07-12 19:20] LABS: Alanine Aminotransferase 15 U/L (0-31); Albumin Level 3.6 g/dL (3.5-5.0); Alkaline Phosphatase 61 U/L (39-117); Anion Gap 12 (12-20); Aspartate Amino Transferase 14 U/L (5-31); Bilirubin Direct < 0.2 mg/dL (0.0-0.5); Bilirubin Total 0.1 mg/dL (0.0-1.0); Blood Urea Nitrogen 8 mg/dL (9-16); Calcium 8.6 mg/dL (8.4-10.2); Carbon Dioxide 22 mmol/L (22-29); Chloride 108 mmol/L (96-108); Creatinine Clr Calc Pharmacy 183.1; Estimated Glomerular Filt Rate > 60; Glucose Random 134 mg/dL (60-115); Magnesium 1.8 mg/dL (1.6-2.6); Potassium 3.6 mmol/L (3.3-5.1); Sodium 138 mmol/L (135-145); Total Protein 6.8 g/dL (6.5-8.0)
[2023-07-12 19:36] LABS: HCG Quantitative 16024 mIU/mL
[2023-07-12 20:47] VITALS: BP 159/88; PULSE 111; RESP 19; TEMP 36.6; O2SAT 100
[2023-07-12] MEDS: Acetaminophen 325 MG TABLET 975 MG PO (21:30)
[2023-07-12] MEDS: Rho(D) Immune Globulin 300 MCG SYRINGE IM (23:12)
[2023-07-12 23:26] VITALS: BP 131/83; PULSE 101; RESP 18; TEMP 36.9
== END 2023-07-12 23:27 | disposition home or self-care (01) ==
PROVIDERS: Physician Assistant; Emergency Provider Internal Medicine
DX: O20.9 Hemorrhage in early pregnancy, unspecified (principal); Z3A.15 15 weeks gestation of pregnancy; R10.2 Pelvic and perineal pain; Z79.899 Other long term (current) drug therapy
CPT/HCPCS: 36415; 76815; 80048; 80076; 83735; 84702; 85025; 86900; 86901; 96372; 99284; J2790

== ENCOUNTER 2023-10-13 12:29 | Emergency (ER) | payer OTHER, SELFPAY ==
--- NOTE | ~2023-10-13 | US_ITS ---
EXAMINATION: US , LIMITED CLINICAL INFORMATION: Abdominal pain. Check for heart rate COMPARISON: None available. TECHNIQUE: Limited exam is performed to assess heartbeat only FINDINGS: Single fetus is present. heartbeat is 123 bpm. US/US OB limited IMPRESSION: A heartbeat of 123 bpm is present.
[2023-10-13 12:51] VITALS: BP 153/88; PULSE 114; RESP 17; TEMP 36.4; O2SAT 99; BMI 50.5
--- NOTE | 2023-10-13 12:52 | ED_ITS ---
HPI - General Adult General Chief complaint: Abdominal Pain Stated complaint: abd pain Time Seen by Provider: 10/13/23 16:41 Source: patient, RN notes reviewed and old records reviewed Mode of arrival: ambulatory History of Present Illness ED Provider: Deysi Hendrix PA-C HPI narrative: 32-year-old female at at 27 weeks gestation, preeclampsia, presenting to the ED complaining of epigastric/RUQ abdominal pain x yesterday, worsening since this morning with associated nausea. LMP 03/28/2024. Denies vaginal bleeding/discharge. Denies fever, chills, diarrhea, dysuria/hematuria. Admits to taking all of her home medications today including antihypertensives. Related Data Previous Rx's ?Medication ?Instructions ?Recorded amlodipine 5 mg tablet 5 mg PO DAILY #90 tabs 01/16/23 cyclobenzaprine 10 mg tablet 10 mg PO Q8H #20 tabs 01/16/23 ibuprofen 600 mg tablet 600 mg PO Q6H PRN fever or pain 01/16/23 #30 tabs cyclobenzaprine 10 mg tablet 10 mg PO TID PRN muscle spasm #20 02/12/23 tabs lidocaine 5 % topical patch 1 patch topical DAILY #30 ea 02/12/23 fluticasone propionate 50 1 spray intranasal Q12H #16 grams 04/06/23 mcg/actuation nasal spray,suspension (Flonase Allergy Relief) guaifenesin 400 mg tablet 400 mg PO Q4H PRN cough #14 tabs 04/06/23 vitamin#30 30 mg iron-10 1 cap PO DAILY #30 caps 05/07/23 mg iron-folic acid 1 mg-omg3 capsule Allergies Allergy/AdvReac Type Severity Reaction Status Date / Time No Known Allergies Allergy Verified 10/13/23 13:00 Review of Systems 2 Review of Systems: Constitutional: No Fever, No Chills, No Fatigue, No Malaise ENT/Mouth:No Ear Pain, No Nasal Congestion,No sore throat, No Rhinorrhea, No Swallowing Difficulty Eyes: No Eye Pain, No Swelling, No Redness, No Vision Changes Cardiovascular: No Chest Pain, No SOB, No Palpitations Respiratory: No Cough, No Sputum, No Dyspnea Gastrointestinal: + Nausea, No Vomiting, No Diarrhea, No Constipation, + Abdominal pain Genitourinary: No irregular bleeding, No Dysuria, No Urinary Frequency, No Hematuria, No Urinary Incontinence/retention,No Flank Pain Musculoskeletal: No joint pain, No Myalgias, No Joint Swelling Skin: No Skin Lesions, No rash Neuro: No Weakness, No Dizziness, No Headache Yes all other systems are reviewed and are negative Constitutional: Constitutional: Reports as per [facility] Past Medical History Attestation statement: The following information was validated with the patient. Source: old records reviewed Medical History Hypertension Cervical radiculopathy Social History Social History Alcohol intake: never Patient Tobacco Use Status: Never used Tobacco Advance Directives: No Advance Directives Information Provided: Yes Do you have a plan to hurt others: No Plan Patient : Yes Physical Exam ED Vital Signs: Vital Signs - 24 hr 10/13/23 12:51 10/13/23 16:27 10/13/23 17:06 Temperature 97.6 F 98.3 F Pulse Rate 114 H 111 H 85 Respiratory Rate 17 17 18 Blood Pressure 153/88 H 150/94 H 154/88 H Pulse Oximetry 99 100 98 Oxygen Delivery Method Room Air Room Air Room Air BMI result Body Mass Index 50.5 Const General: cooperative, healthy appearing and no acute distress Orientation/consciousness: patient oriented x3 Limitations: no limitations HENMT Head: Yes normal to inspection and Yes atraumatic Ears: hearing grossly normal bilaterally General nose exam: Normal external nose present Face and sinus: Yes normal facial exam Eyes General: appearance normal, both eyes and all related structures EOM: EOMs intact bilaterally Neck Neck: Yes normal visual inspection and Yes no meningeal signs Resp Effort & Inspection: normal respiratory effort and no respiratory distress Auscultation: clear to auscultation bilaterally Cardio Rate: regular rate Heart sounds: S1 normal heart sound present and S2 normal heart sound present GI Inspection: Yes normal to inspection Palpation (GI): Soft to palpation, Tenderness to palpation present (GI) in the epigastrum and in the RUQ; with no rebound tenderness, no guarding and not rigid General: Yes no CVA tenderness Back/Spine/Pelvis Back: no CVA tenderness Skin Rashes: no rashes Wounds: no wounds Neuro General: patient oriented x3, tone normal and no meningeal signs Cranial nerves: Yes CN's II-XII intact bilaterally Gait exam (Neuro): Normal gait present Extrem General: Yes normal to inspection Course Course Course Narrative: This is an RME performed by Perlita Renee CNP: Additional HPI, ROS, PE not included below will be deferred to primary provider. Patient is a 32-year-old female G5 T1 L1 with history of pre-eclampsia reporting she is 27 weeks 3 days , estimated due date 01/05/24, LMP 03/28/24 complaining of abdominal pain with onset yesterday intemittently now with 1 hour ago, more severe and associated nausea, localized to epigastric region, headache, dizziness. denies abnormal vaginal discharge or vaginal bleeding, denies any inguinal cramping or contraction like sensations. Received OB care at [facility]. Reports compliance with aspirin, antihypertensives. -repeat blood pressure remains elevated, will consult OBGYN, Dr. Jeffery >> 1800--patient does not meet severe hypertension (160/110) however has other elements that are concerning, case discussed with Dr. Jeffery who recommended emergent transfer. [facility] transfer line called -no leukocytosis. LFTs WNL. >1820--case discussed with OBGYN resident Cristiana who accepted transfer to , accepting physician Dr. Rush. They did not recommended magnesium at this time Medications Administered Discontinued Medications Generic Name Dose Route Start Last Admin Trade Name Freq PRN Reason Stop Dose Admin Acetaminophen 650 mg 10/13/23 17:16 10/13/23 17:33 Acetaminophen 325 Mg Tablet PO 10/13/23 17:17 650 mg ONCE ONE Administration Sodium Chloride 1,000 mls @ 999 mls/hr 10/13/23 16:45 10/13/23 18:00 Ns IV 10/13/23 17:45 Infused .Q1H1M SHILO Infusion Medical Decision Making Medical Decision Making MDM Narrative: 32-year-old female at at 27 weeks gestation, preeclampsia, presenting to the ED complaining of epigastric/RUQ abdominal pain x yesterday, worsening since this morning with associated nausea. On exam hypertensive, initially tachycardic likely from pain, NAD, abdomen soft with epigastric/RUQ tenderness, no rebound or guarding, no CVAT. Concern for severe preeclampsia or eclampsia vs HELLP syndrome. Concern for pancreatitis vs cholecystitis/lithiasis. Low suspicion for severe sepsis this time, tachycardia likely from pain Patient has been hypertensive since ED arrival, will repeat/monitor closely. Plan: Labs, UA, heart tone, abdomen ultrasound, IVF, pain control Please refer to course for remaining clinical decision making, interpretation of labs/imaging results, and discussions with consultants and/or family members. 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 10/13/23 13:20 10/13/23 13:20 Labs: Lab Results 10/13/23 Range/Units 13:20 WBC 6.3 (4.8-10.8) X10*3/uL RBC 3.79 L (4.20-5.50) X10*6/uL Hgb 10.4 L (12.0-16.0) g/dl Hct 30.9 L (37.0-47.0) % MCV 81.5 (80.0-98.0) fL MCH 27.4 (27.0-33.0) pg MCHC 33.7 (31.0-35.0) g/dl RDW 12.9 (11.0-16.0) % Plt Count 166 (160-400) X10*3/uL MPV 12.3 (9.4-12.3) fL Immature Gran % (Auto) 1.1 H (0.0-0.4) % Neut % (Auto) 75.7 H (45-73) % Lymph % (Auto) 15.0 L (20-40) % [place] % (Auto) 6.2 (2-11) % Eos % (Auto) 1.7 (0-4) % Baso % (Auto) 0.3 (0-2) % Lymph # (Auto) 1.0 L (1.2-4.9) X10*3/uL [place] # (Auto) 0.4 (0.1-1.2) X10*3/uL Eos # (Auto) 0.1 (0.0-0.4) X10*3/uL Baso # (Auto) 0.0 (0.0-0.2) X10*3/uL Abs Immat Gran (auto) 0.07 H (0.00-0.03) X10*3/uL Absolute Neuts (auto) 4.8 (2.0-8.3) x10*3/uL Absolute Nucleated RBC 0.000 (0.0-0.012) X10*3/uL Nucleated RBC % (auto) 0.0 (0.0-0.2) /100WBC Sodium 137 (135-145) mmol/L Potassium 3.4 (3.3-5.1) mmol/L Chloride 109 H (96-108) mmol/L Carbon Dioxide 20 L (22-29) mmol/L Anion Gap 11 L (12-20) BUN 7 L (9-16) mg/dL Creatinine 0.62 (0.5-1.4) mg/dL Estim Creat Clear Calc 173.9 Estimated GFR > 60 Random Glucose 123 H (60-115) mg/dL Calcium 8.8 (8.4-10.2) mg/dL Magnesium 1.7 (1.6-2.6) mg/dL Total Bilirubin 0.1 (0.0-1.0) mg/dL AST 16 (5-31) U/L ALT 15 (0-31) U/L Alkaline Phosphatase 88 (39-117) U/L Total Protein 6.3 L (6.5-8.0) g/dL Albumin 3.3 L (3.5-5.0) g/dL Lipase 20 (8-78) U/L Beta HCG, Quant 74734 mIU/mL Urine Color Yellow Urine Appearance Clear Urine pH 6.0 (5.0-9.0) Ur Specific [place] 1.025 (1.005-1.025) Urine Protein Trace (Neg-Trace) mg/dL Urine Glucose (UA) Negative (Negative) mg/dL Urine Ketones 15 (Negative) mg/dL Urine Blood Negative (Negative) Urine Nitrite Negative (Negative) Ur Leukocyte Esterase Negative (Negative) Independent Interpretation I performed an independent interpretation of an: Ultrasound Radiology Impression Discussion of test interpretation with radiology: I have reviewed the radiologist's reading. External Record Review External record reviewed: Inpatient record, Office record, Outpatient record, Prior outpatient labs, Prior outpatient radiology, Primary care record and Outside ED record Tests considered The following testing was considered but not selected: As above Prescription Management I considered prescription management with: Pain Medication Chronic Conditions Patient?s care impacted by: Other Critical Care Time Critical Care Time Critical Care Time: Yes Total Critical Care Time: 40 Attestation: I have personally provided critical care time exclusive of time spent on separately billable procedures. Time includes review of lab data, radiology results, discussion with consultants, and monitoring for potential decompensation. Intervention performed as documented. Discharge Plan Discharge Clinical Impression: Pre-eclampsia, Abdominal pain complicating Patient Disposition: [facility] Transfer Details: [facility] W2 Dr. Rush Prescriptions: No Action cyclobenzaprine 10 mg tablet 10 mg PO Q8H Qty: 20 0RF ibuprofen 600 mg tablet 600 mg PO Q6H PRN (Reason: fever or pain) Qty: 30 0RF amlodipine 5 mg tablet 5 mg PO DAILY Qty: 90 2RF PNV #[id number] 30 mg iron-10 mg iron-1 mg capsule 1 cap PO DAILY Qty: 30 2RF cyclobenzaprine 10 mg tablet 10 mg PO TID PRN (Reason: muscle spasm) Qty: 20 0RF lidocaine 5 % adhesive patch,medicated 1 patch topical DAILY Qty: 30 0RF Rx Instructions: leave on most painful area for up to 12 hrs guaifenesin 400 mg tablet 400 mg PO Q4H PRN (Reason: cough) Qty: 14 0RF fluticasone propionate [Flonase Allergy Relief] 50 mcg/actuation spray,suspension 1 spray intranasal Q12H Qty: 16 0RF Rx Instructions: administer into each nostril Print Language: Occitan
[2023-10-13 13:25] LABS: MANUAL DIFF FLAG NO
[2023-10-13 13:27] LABS: Appearance Urine Clear; Basophils Percent Auto 0.3 % (0-2); Color Urine Yellow; Eosinophils Absolute Auto 0.1 X10*3/uL (0.0-0.4); Eosinophils Percent Auto 1.7 % (0-4); Glucose Urine UA Negative (Negative); Hematocrit 30.9 % (37.0-47.0); Hemoglobin 10.4 g/dl (12.0-16.0); Imm Gran Abs Auto 0.07 X10*3/uL (0.00-0.03); Imm Gran Pct Auto 1.1 % (0.0-0.4); Leukocyte Esterase Urine Negative (Negative); Mean Corpuscular HGB Conc 33.7 g/dl (31.0-35.0); Mean Corpuscular Hemoglobin 27.4 pg (27.0-33.0); Mean Corpuscular Volume 81.5 fL (80.0-98.0); Mean Platelet Volume 12.3 fL (9.4-12.3); Monocytes Absolute Auto 0.4 X10*3/uL (0.1-1.2); Monocytes Percent Auto 6.2 % (2-11); Neutrophils Absolute Auto 4.8 x10*3/uL (2.0-8.3); Neutrophils Percent Auto 75.7 % (45-73); Nitrite Urine Negative (Negative); Platelet Count 166 X10*3/uL (160-400); Red Blood Count 3.79 X10*6/uL (4.20-5.50); Red Cell Distribution Width 12.9 % (11.0-16.0); Specific Gravity - Urine 1.025 (1.005-1.025); Urine Blood Negative (Negative); Urine Ketones 15 mg/dL (Negative); Urine Protein Trace mg/dL (Neg-Trace); White Blood Count 6.3 X10*3/uL (4.8-10.8)
[2023-10-13 13:53] LABS: Alanine Aminotransferase 15 U/L (0-31); Albumin Level 3.3 g/dL (3.5-5.0); Alkaline Phosphatase 88 U/L (39-117); Anion Gap 11 (12-20); Aspartate Amino Transferase 16 U/L (5-31); Bilirubin Total 0.1 mg/dL (0.0-1.0); Blood Urea Nitrogen 7 mg/dL (9-16); Calcium 8.8 mg/dL (8.4-10.2); Carbon Dioxide 20 mmol/L (22-29); Chloride 109 mmol/L (96-108); Creatinine Clr Calc Pharmacy 173.9; Estimated Glomerular Filt Rate > 60; Glucose Random 123 mg/dL (60-115); Lipase 20 U/L (8-78); Potassium 3.4 mmol/L (3.3-5.1); Sodium 137 mmol/L (135-145); Total Protein 6.3 g/dL (6.5-8.0)
[2023-10-13 16:27] VITALS: BP 150/94; PULSE 111; RESP 17; TEMP 36.8; O2SAT 100
[2023-10-13] MEDS: 0.9 % Sodium Chloride 1,000 ML 999 ML IV (17:00)
[2023-10-13 17:06] VITALS: BP 154/88; PULSE 85; RESP 18; O2SAT 98
--- NOTE | 2023-10-13 17:08 | PC.NURSE ---
20g Iv placed in L-AC 1L NS infusing per order, plan is for pt to have OB US, and re-eval B/P. call dowling within reach,care ongoing
[2023-10-13 17:25] LABS: Magnesium 1.7 mg/dL (1.6-2.6)
[2023-10-13 17:26] LABS: HCG Quantitative 10898 mIU/mL
[2023-10-13] MEDS: Acetaminophen 325 MG TABLET 650 MG PO (17:33)
--- NOTE | 2023-10-13 17:35 | PC.NURSE ---
pt medicated per MAY for 11/09 pain
--- NOTE | 2023-10-13 18:03 | P.CONOB_ITS ---
OB Consult Note - [facility] Data Service Date: 10/13/23 Primary Care Provider: Unknown Physician Narrative I was contacted at 18:00 by VARGAS Dinero regarding Yulissa Smiley who is a 32 year old female 32-year-old female at at 27 weeks gestation with preeclampsia, presenting to the ED complaining of epigastric/RUQ abdominal pain since yesterday, worsening since this morning with associated nausea, no vaginal bleeding or leakage of fluid. The patient is on nifedipine 60 mg p.o. q.d. OB PMFSH Past Medical History Medical History Hypertension Cervical radiculopathy Social History Social History Alcohol intake: never Patient Tobacco Use Status: Never used Tobacco Meds Allergies Allergy/AdvReac Type Severity Reaction Status Date / Time No Known Allergies Allergy Verified 10/13/23 13:00 OB Physical Exam Physical Exam Additional Comments: Reported by Deysi Hendrix as the following: Palpation (GI): Soft to palpation, Tenderness to palpation present (GI) in the epigastrum and in the RUQ; with no rebound tenderness, no guarding and not rigid FHR 147 bpm OB Consult Results Labs 10/13/23 13:20 10/13/23 13:20 Labs: Short CBC 10/13/23 Range/Units 13:20 WBC 6.3 (4.8-10.8) X10*3/uL Hgb 10.4 L (12.0-16.0) g/dl Hct 30.9 L (37.0-47.0) % Plt Count 166 (160-400) X10*3/uL BMP 10/13/23 13:20 Sodium 137 Potassium 3.4 Chloride 109 H Carbon Dioxide 20 L BUN 7 L Creatinine 0.62 Calcium 8.8 Liver Function 10/13/23 Range/Units 13:20 Total Bilirubin 0.1 (0.0-1.0) mg/dL AST 16 (5-31) U/L ALT 15 (0-31) U/L Alkaline Phosphatase 88 (39-117) U/L Albumin 3.3 L (3.5-5.0) g/dL Urine 10/13/23 Range/Units 13:20 Urine Color Yellow Urine Appearance Clear Urine pH 6.0 (5.0-9.0) Ur Specific [place] 1.025 (1.005-1.025) Urine Protein Trace (Neg-Trace) mg/dL Urine Glucose (UA) Negative (Negative) mg/dL OB - CN: A/P Assessment and Plan (1) Pre-eclampsia: Status: Acute Assessment and Plan: Discussed with VARGAS Villegas in the emergency room the following: Criteria for severe hypertension treatment is systolic blood pressure of 160 and above and or diastolic blood pressure of 110 above, if there will be an indication for emergency hypertensive treatment with IV labetalol or hydralazine per protocol for emergency hypertensive treatment in . Diagnosis of preeclampsia with epigastric and right upper quadrant pain is highly suspicious but not limited to preeclampsia with severe features, recommended stat/ immediate transfer to [facility] without any delay since there is no maternity unit available at [facility] nor monitors to monitor the heart rate. Recommended to have a discussion with [facility] OBGYN/MFM team whether magnesium sulfate 4 g loading dose and 2 grams/hour afterwards is to be started prior to transfer by ambulance.? If blood pressure reaches severe range 160 and or 1 tab above, to contact me so that we can initiate emergency hypertension protocol I spent a total of 20 minutes reviewing the chart, communicating to the emergency room provider and documenting in the medical record Time Spent With Patient Time: Total time managing care of this patient today ____ minutes.
--- NOTE | 2023-10-13 19:18 | PC.NURSE ---
report given to WONG De Souza RN
[2023-10-13 19:19] VITALS: BP 154/88; PULSE 85; RESP 18; TEMP 36.9; O2SAT 98
== END 2023-10-13 19:20 | disposition short-term general hospital (02) ==
PROVIDERS: Nurse Practitioner Family; Physician Assistant; Emergency Provider Internal Medicine
DX: O14.92 Unspecified pre-eclampsia, second trimester (principal); O26.892 Other specified pregnancy related conditions, second trimester; R10.11 Right upper quadrant pain; Z3A.27 27 weeks gestation of pregnancy
CPT/HCPCS: 36415; 76815; 80053; 81003; 83690; 83735; 84702; 85025; 96360; 99285

== ENCOUNTER → 2023-10-13 13:20 | Outpatient (BNV) | payer OTHER, SELFPAY | PROVIDERS: Emergency Provider Internal Medicine; Visit Provider Obstetrics & Gynecology | DX: O14.90 Unspecified pre-eclampsia, unspecified trimester (principal) | CPT/HCPCS: 99283 ==

== ENCOUNTER → 2024-01-10 13:16 | Outpatient (BNVA) | payer OTHER, SELFPAY | PROVIDERS: Visit Provider Physician Assistant Surgical ==

== ENCOUNTER 2024-02-08 08:00 | Outpatient (AMB) | payer OTHER, SELFPAY ==
[2024-02-07 17:03] VITALS: BMI 46.7
--- NOTE | 2024-02-07 17:03 | MHC.OFFVISWM ---
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* Patron Attendant Required: Yes Patron Attendant Services: Patron Attendant Present Information Interpreted: clinical only Allergies No Known Allergies Allergy (Verified 02/07/24 17:04) Medication List - Last Reconciled 02/07/24 by Melo Schofield MD aspirin (Adult Aspirin Regimen) 81 mg PO DAILY famotidine (Pepcid) 20 mg PO DAILY nifedipine ER 30 mg PO DAILY PNV #[id number] 30 mg iron-10 mg iron-1 mg 1 cap PO DAILY HPI 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*: Details: Start time: 12pm, End time: 1pm I spent 45 minutes speaking with the patient on the phone plus an additional 15 minutes reviewing and updating records for a total of 60 minutes HPI Comments Details: Previous weight loss efforts: self diets Wakes up: 10am, Sleeps: 3am Breakfast: skips Lunch: 11am (oatmeal) Dinner: 7pm (rice, potatoes, meats, vegetables) Snacks: 3pm (yogurt, fruits), 10pm (ham, cheese, milk) Exercise: none Fluids: Coffee: 1 cup/d (cream and sugar), tea: 1-2 cups/d (salt), soda: Coca Cola a few times per week, juice: fresh juice sometimes, ETOH: none PFSH Medical History (Updated 02/07/24 @ 17:09 by Melo Schofield MD) Hypertension Asthma GERD (gastroesophageal reflux disease) Morbid obesity Cervical radiculopathy Surgical History (Updated 01/10/24 @ 14:34 by Vera Trujillo CMA) Hx of section Family History (Updated 01/10/24 @ 14:34 by Vera Trujillo CMA) Family/Other No problems noted. Social History Alcohol intake: never Patient Tobacco Use Status: Never used Tobacco Physical Exam Vital Signs: BMI result Body Mass Index 46.7 Telehealth Telehealth Telehealth Platform: Telephone Location of provider rendering services: practice address Location of patient: address on file Patient Identification confirmed using: Name, : Yes Telehealth method: voice only Patient verbally consented to treatment: Yes Patient verbally consented to billing insurance company: Yes Patient informed of any privacy concerns related to visit: Yes Minutes spent on Phone/Video with Pt.: 60 Assessment & Plan Assessment & Plan (1) Morbid obesity: Code(s): E66.01 - Morbid (severe) obesity due to excess calories Category: Medical Plan: 1. Plan for lap sleeve gastrectomy. If diaphragmatic or ventral hernias are present at time of surgery, these will be repaired laparoscopically as well. Risks and complications were discussed in detail including possible conversion to an open procedure, anastomotic leak, bleeding requiring transfusion, small bowel obstruction, , DVT and pulmonary embolism, cardiac, or pulmonary complications, as termite exterminator helper complications such as anastomotic ulcer, insufficient weight loss and vitamin deficiencies. I emphasized the importance of close follow-up, adherence to instructions and good communication. 2. You will receive a link of our software lydia to generate an individualized nutritional and exercise plan specific for you. Please send me a screenshot of the plans you will generate Meal to include lean meat (beef, fish, pork, turkey, chicken), or tamazight yogurt, or egg whites, or beans with a salad with olive oil and fruits (berries, pears, apples, kiwi). Avoid salt, breads, potatoes, rice, pasta, desserts. 3. If you choose shakes, each shake would be drunk slowly, like coffee in a period of 2 hours. 4. If you choose bars, cut each bar in 4 pieces and eat each piece in 30min to make each bar last 2 hours. 5. I emphasized the importance of measuring accurately the food portion and measure it when serving the food in plate 6. The meal portions include a specific number of forks of meat and salad. You always eat the meat portion but you can replace up to half of salad/vegetables portion with rice, potatoes or pasta, or a fruit if you like. The less you do it the better weight loss will be. 7. One full-size fork is what it can be scooped on the fork without falling aside and not what can be bit with the fork. Use regular forks like those you find in a typical restaurant. 8. Please send me weight measurements as soon as possible and then once a week. Always include your diet and exercise plan. 9. The best choice would be to purchase a stationary bike, elliptical or treadmill at home that can track calories. Let me know if you do so I can give you an exercise plan. 10. It is important of avoiding and for at least 18 months postoperatively and has been discussed at the infosession. 11. Goal is to lose at least 1.5-2lbs per week 12. Goal to lose 10% of your weight before surgery, which is about 27lbs. Ultimate weight goal: 245lbs before surgery 13. Please follow the diet plan exactly without any change. If you don't like something about the plan or you feel hungry you need to communicate with me so I can help you revise the plan. You should not change the plan yourself. 14. To be scheduled for EGD due to history of GERD. The possibility of biopsies was discussed. Patient needs to avoid use of NSAIDs and aspirin for 1 week prior to EGD. Risks of perforation and bleeding was discussed with the patient. This will be an outpatient procedure with IV sedation. Orders: Orders Insulin 02/07/24 E66.01 - Morbid (severe) obesity due to excess calories, I10 - Essential (primary) hypertension, J45.909 - Unspecified asthma, uncomplicated, K21.9 - Gastro-esophageal reflux disease without esophagitis Lipid Panel 02/07/24 E66.01 - Morbid (severe) obesity due to excess calories, I10 - Essential (primary) hypertension, J45.909 - Unspecified asthma, uncomplicated, K21.9 - Gastro-esophageal reflux disease without esophagitis Comprehensive Met. Panel 02/07/24 E66.01 - Morbid (severe) obesity due to excess calories, I10 - Essential (primary) hypertension, J45.909 - Unspecified asthma, uncomplicated, K21.9 - Gastro-esophageal reflux disease without esophagitis Vitamin A 02/07/24 E66.01 - Morbid (severe) obesity due to excess calories, I10 - Essential (primary) hypertension, J45.909 - Unspecified asthma, uncomplicated, K21.9 - Gastro-esophageal reflux disease without esophagitis Vitamin D 25-OH Total 02/07/24 E66.01 - Morbid (severe) obesity due to excess calories, I10 - Essential (primary) hypertension, J45.909 - Unspecified asthma, uncomplicated, K21.9 - Gastro-esophageal reflux disease without esophagitis Hemoglobin A1c 02/07/24 E66.01 - Morbid (severe) obesity due to excess calories, I10 - Essential (primary) hypertension, J45.909 - Unspecified asthma, uncomplicated, K21.9 - Gastro-esophageal reflux disease without esophagitis H Pylori Breath Test 02/07/24 E66.01 - Morbid (severe) obesity due to excess calories, I10 - Essential (primary) hypertension, J45.909 - Unspecified asthma, uncomplicated, K21.9 - Gastro-esophageal reflux disease without esophagitis Complete Blood Count Auto Diff 02/07/24 E66.01 - Morbid (severe) obesity due to excess calories, I10 - Essential (primary) hypertension, J45.909 - Unspecified asthma, uncomplicated, K21.9 - Gastro-esophageal reflux disease without esophagitis IRON PROFILE 02/07/24 E66.01 - Morbid (severe) obesity due to excess calories, I10 - Essential (primary) hypertension, J45.909 - Unspecified asthma, uncomplicated, K21.9 - Gastro-esophageal reflux disease without esophagitis Vitamin B12 and Folate 02/07/24 E66.01 - Morbid (severe) obesity due to excess calories, I10 - Essential (primary) hypertension, J45.909 - Unspecified asthma, uncomplicated, K21.9 - Gastro-esophageal reflux disease without esophagitis Zinc 02/07/24 E66.01 - Morbid (severe) obesity due to excess calories, I10 - Essential (primary) hypertension, J45.909 - Unspecified asthma, uncomplicated, K21.9 - Gastro-esophageal reflux disease without esophagitis C Reactive Protein 02/07/24 E66.01 - Morbid (severe) obesity due to excess calories, I10 - Essential (primary) hypertension, J45.909 - Unspecified asthma, uncomplicated, K21.9 - Gastro-esophageal reflux disease without esophagitis Vitamin B1 02/07/24 E66.01 - Morbid (severe) obesity due to excess calories, I10 - Essential (primary) hypertension, J45.909 - Unspecified asthma, uncomplicated, K21.9 - Gastro-esophageal reflux disease without esophagitis TSH reflex Free T4 02/07/24 E66.01 - Morbid (severe) obesity due to excess calories, I10 - Essential (primary) hypertension, J45.909 - Unspecified asthma, uncomplicated, K21.9 - Gastro-esophageal reflux disease without esophagitis Ferritin 02/07/24 E66.01 - Morbid (severe) obesity due to excess calories, I10 - Essential (primary) hypertension, J45.909 - Unspecified asthma, uncomplicated, K21.9 - Gastro-esophageal reflux disease without esophagitis US abdomen comp w elastography 02/07/24 E66.01 - Morbid (severe) obesity due to excess calories, I10 - Essential (primary) hypertension, J45.909 - Unspecified asthma, uncomplicated, K21.9 - Gastro-esophageal reflux disease without esophagitis XR chest 2V 02/07/24 E66.01 - Morbid (severe) obesity due to excess calories, I10 - Essential (primary) hypertension, J45.909 - Unspecified asthma, uncomplicated, K21.9 - Gastro-esophageal reflux disease without esophagitis ECG 12 lead EKG 02/07/24 E66.01 - Morbid (severe) obesity due to excess calories, I10 - Essential (primary) hypertension, J45.909 - Unspecified asthma, uncomplicated, K21.9 - Gastro-esophageal reflux disease without esophagitis FL upper GI w air 02/07/24 E66.01 - Morbid (severe) obesity due to excess calories, I10 - Essential (primary) hypertension, J45.909 - Unspecified asthma, uncomplicated, K21.9 - Gastro-esophageal reflux disease without esophagitis Referrals Nutrition/Dietitian Referral E66.01 - Morbid (severe) obesity due to excess calories, I10 - Essential (primary) hypertension, J45.909 - Unspecified asthma, uncomplicated, K21.9 - Gastro-esophageal reflux disease without esophagitis Behavioral Health Referral E66.01 - Morbid (severe) obesity due to excess calories, I10 - Essential (primary) hypertension, J45.909 - Unspecified asthma, uncomplicated, K21.9 - Gastro-esophageal reflux disease without esophagitis
== END 2024-02-09 07:55 | disposition home or self-care (01) ==
LOC: HO.HBS 08:00
PROVIDERS: Visit Provider Surgery
DX: E66.813 Obesity, class 3 (principal); Z68.42 Body mass index [BMI] 45.0-49.9, adult
CPT/HCPCS: 99205

== ENCOUNTER → 2024-02-08 08:00 | Outpatient (BNVA) | payer OTHER, SELFPAY | PROVIDERS: Visit Provider Surgery | DX: E66.01 Morbid (severe) obesity due to excess calories (principal); I10 Essential (primary) hypertension; K21.9 Gastro-esophageal reflux disease without esophagitis; J45.909 Unspecified asthma, uncomplicated ==

== ENCOUNTER 2024-02-22 09:51 | Outpatient (REF) | payer OTHER, SELFPAY ==
--- NOTE | 2024-02-22 10:01 | ECG_ITS ---
Test Reason : MOR OBS Blood Pressure : / mmHG Vent. Rate : 081 BPM Atrial Rate : 081 BPM P-R Int : 136 ms QRS Dur : 092 ms QT Int : 410 ms P-R-T Axes : 007 025 -05 degrees QTc Int : 476 ms Normal sinus rhythm Minimal voltage criteria for LVH, may be normal variant ( Sokolow-Carrizales ) Borderline ECG No previous ECGs available Referred By: Melo Schofield Electronically Signed By:JORJE BAKER MD
[2024-02-22 10:14] LABS: MANUAL DIFF FLAG NO
[2024-02-22 10:46] LABS: Basophils Absolute Auto 0.1 X10*3/uL (0.0-0.2); Eosinophils Absolute Auto 0.1 X10*3/uL (0.0-0.4); Eosinophils Percent Auto 2.2 % (0-4); Estimated Average Glucose 91 mg/dL; Hematocrit 32.1 % (37.0-47.0); Hemoglobin 9.9 g/dl (12.0-16.0); Hemoglobin A1C 74.7413 umol/L; Hemoglobin A1c % 4.8 % (<6.0); Imm Gran Abs Auto 0.02 X10*3/uL (0.00-0.03); Imm Gran Pct Auto 0.3 % (0.0-0.4); Lymphocytes Absolute Auto 1.8 X10*3/uL (1.2-4.9); Lymphocytes Percent Auto 29.8 % (20-40); Mean Corpuscular HGB Conc 30.8 g/dl (31.0-35.0); Mean Corpuscular Hemoglobin 22.6 pg (27.0-33.0); Mean Corpuscular Volume 73.3 fL (80.0-98.0); Monocytes Absolute Auto 0.3 X10*3/uL (0.1-1.2); Neutrophils Absolute Auto 3.7 x10*3/uL (2.0-8.3); Neutrophils Percent Auto 61.7 % (45-73); Platelet Count 202 X10*3/uL (160-400); Red Blood Count 4.38 X10*6/uL (4.20-5.50); Red Cell Distribution Width 16.8 % (11.0-16.0)
[2024-02-22 11:14] LABS: Alanine Aminotransferase 18 U/L (0-31); Alkaline Phosphatase 89 U/L (39-117); Anion Gap 12 (12-20); Aspartate Amino Transferase 18 U/L (5-31); Bilirubin Total 0.5 mg/dL (0.0-1.0); Blood Urea Nitrogen 9 mg/dL (9-16); Calcium 8.6 mg/dL (8.4-10.2); Carbon Dioxide 21 mmol/L (22-29); Chloride 110 mmol/L (96-108); Cholesterol 121 mg/dL (<200); Estimated Glomerular Filt Rate > 60; Glucose Random 93 mg/dL (60-115); HDL Cholesterol 36 mg/dL (>40); Iron 48 mcg/dL (30-160); LDL Cholesterol Calculated 65 mg/dL (<100); Percent Iron Saturation 13 % (15-50); Potassium 3.6 mmol/L (3.3-5.1); Sodium 139 mmol/L (135-145); Total Iron Binding Capacity 364 mcg/dL (228-428); Triglycerides 103 mg/dL (<150); Unsaturated Iron Binding 316 ug/dL
[2024-02-22 11:34] LABS: Ferritin 14 ng/mL (10-122); Insulin 16 uU/mL (2-29); TSH reflex Free T4 1.64 uIU/mL (0.32-4.0); Vitamin D 25-OH Total 21.1 ng/mL (>30)
[2024-02-22 11:37] LABS: Folate 13.4 ng/mL (> or = 4.0); Vitamin B12 432 pg/mL (200-900)
[2024-02-26 21:48] LABS: Zinc 73 mcg/dL (60-130)
[2024-02-29 02:38] LABS: Vitamin A 45 mcg/dL (38-98)
[2024-02-29 16:18] LABS: Vitamin B1 7 nmol/L (8-30)
== END 2024-02-22 09:52 | disposition home or self-care (01) ==
LOC: HO.US 09:51
PROVIDERS: PCP Internal Medicine; Visit Provider Surgery
DX: E66.01 Morbid (severe) obesity due to excess calories (principal); I10 Essential (primary) hypertension; K21.9 Gastro-esophageal reflux disease without esophagitis; J45.909 Unspecified asthma, uncomplicated
CPT/HCPCS: 36415; 71046; 76700; 76981; 80053; 80061; 82306; 82607; 82728; 82746; 83036; 83525; 83540; 84425; 84443; 84590; 84630; 85025; 86140; 93005

== ENCOUNTER → 2024-02-22 10:01 | Outpatient (BNV) | payer OTHER, SELFPAY | PROVIDERS: PCP Internal Medicine; Visit Provider Internal Medicine Cardiovascular Disease | DX: R94.31 Abnormal electrocardiogram [ECG] [EKG] (principal); E66.01 Morbid (severe) obesity due to excess calories | CPT/HCPCS: 93010 ==

== ENCOUNTER → 2024-02-22 10:32 | Outpatient (BNV) | payer OTHER, SELFPAY | PROVIDERS: PCP Internal Medicine; Visit Provider Radiology Diagnostic Radiology | DX: E66.01 Morbid (severe) obesity due to excess calories (principal) | CPT/HCPCS: 76700 ==

== ENCOUNTER → 2024-02-26 15:07 | Outpatient (BNVA) | payer OTHER, SELFPAY | PROVIDERS: PCP Internal Medicine; Visit Provider Physician Assistant Surgical ==

== ENCOUNTER 2024-03-12 06:15 | Day surgery (SDC) | payer OTHER, SELFPAY ==
[2024-03-10 13:04] VITALS: BMI 46.7
--- NOTE | 2024-03-10 14:15 | HO.ANESPROP2 ---
Documented by User: Maegan Rosario NP 03/10/24 14:15 HPI - Anesthesia Eval Consult details Narrative: 33yo F for Upper Endoscopy PMFSH Active Problems Active Problems: All Active Problems Asthma (Acute) GERD (gastroesophageal reflux disease) (Acute) Hypertension (Acute) Morbid obesity (Acute) Past Medical History Medical History Hypertension Asthma GERD (gastroesophageal reflux disease) Morbid obesity Cervical radiculopathy Family History Family History (Updated 01/10/24 @ 14:34 by Vera Trujillo CMA) Family/Other No problems noted. Surgical History Surgical History Hx of section Social History Social History Alcohol intake: never Patient Tobacco Use Status: Never used Tobacco Use of substances other than those prescribed or required for medical reasons: No Have you been hit, kicked, punched, or otherwise hurt by someone within the past year? If so, by whom?: No Advance Directives: No Advance Directives Information Provided: Yes Recently lost weight without trying: No Nutrition Risks: No Nutritional Risk Meds Allergies Allergy/AdvReac Type Severity Reaction Status Date / Time No Known Allergies Allergy Verified 03/12/24 06:41 Home Medications ?Medication ?Instructions ?Recorded ?Confirmed ?Last Taken ?Type aspirin 81 mg tablet,delayed 81 mg PO DAILY 01/10/24 03/12/24 03/10/24 History release (Adult Aspirin Regimen) nifedipine 30 mg tablet,extended 30 mg PO DAILY 01/10/24 03/12/24 03/11/24 History release 24 hr famotidine 20 mg tablet (Pepcid) 20 mg PO DAILY 02/07/24 03/12/24 03/11/24 History Exam Height,Weight and Vital Signs: Height 5 ft 4 in Weight 123.377 kg Assessment and Plan Assessment Anesthesia Assessment: Chart Reviewed Documented by User: Remington Redding MD 03/12/24 07:23 [facility] Past Medical History Medical History Hypertension Asthma GERD (gastroesophageal reflux disease) Morbid obesity Cervical radiculopathy Family History Family History (Updated 01/10/24 @ 14:34 by Vera Trujillo CMA) Family/Other No problems noted. Family history of problems with anesthesia: No Surgical History Surgical History Hx of section History of Problems with Anesthesia: No Social History Social History Alcohol intake: never Patient Tobacco Use Status: Never used Tobacco Use of substances other than those prescribed or required for medical reasons: No Have you been hit, kicked, punched, or otherwise hurt by someone within the past year? If so, by whom?: No Advance Directives: No Advance Directives Information Provided: Yes Recently lost weight without trying: No Nutrition Risks: No Nutritional Risk Meds Allergies Allergy/AdvReac Type Severity Reaction Status Date / Time No Known Allergies Allergy Verified 03/12/24 06:41 Home Medications ?Medication ?Instructions ?Recorded ?Confirmed ?Last Taken ?Type aspirin 81 mg tablet,delayed 81 mg PO DAILY 01/10/24 03/12/24 03/10/24 History release (Adult Aspirin Regimen) nifedipine 30 mg tablet,extended 30 mg PO DAILY 01/10/24 03/12/24 03/11/24 History release 24 hr famotidine 20 mg tablet (Pepcid) 20 mg PO DAILY 02/07/24 03/12/24 03/11/24 History Exam Airway Mallampati Class: III TM Dist: >3cm Neck ROM: Full Assessment and Plan Assessment Anesthesia Assessment: Anesthesia Plan Discussed Final Anesthetic Review Family History of Problems with Anesthesia: No History of Problems with Anesthesia: No NPO: Yes ASA Class: III Final Preanesthetic Review: No Changes in Pt Med Stat, Meds/Allgs Chart Reviewed, Consent Obtained/Reviewed and Anes Risks/Benef Reviewed Patient Risk: Intermediate Procedure Risk: Low Anesthetic Plan Anesthetic Plan: TIVA Disposition: Standard PACU
[2024-03-12 06:35] VITALS: BMI 46.7
[2024-03-12 06:39] LABS: UPreg QC Valid YES; Urine Pregnancy NEGATIVE (NEGATIVE)
[2024-03-12 06:55] VITALS: BP 150/85; PULSE 85; RESP 16; TEMP 36.6; O2SAT 99
[2024-03-12] MEDS: Lactated Ringers 1,000 ML 80 ML IVCONT (06:56)
--- NOTE | 2024-03-12 07:40 | MHC.SHP ---
Pre-Procedural Eval Section A - 24 Hr Update-Section A only Date of Service: 03/12/24 The patient is an INPATIENT: No The patient has been examined within 24 hours of the surgical procedure. The History & Physical has been completed within 30 days and I have reviewed it.: Yes Section B - Complete if H&P > 30 days Chief Complaint: Morbid (severe) obesity due to excess calories Details of Present Illness: GERD Relevant Family History (Specify if Yes): No Relevant Social History: None Present Medications: None Medical History: No relevant PMH History of Previous Operations: No relevant previous surgery Allergies: Allergies Allergy/AdvReac Type Severity Reaction Status Date / Time No Known Allergies Allergy Verified 03/12/24 06:41 Review of Systems Sugical H&P ROS: Negative: Constitution, Cardiovascular, Respiratory, Neurological, Psychiatric, Hem-Onc, Allergic/Immunologic, Gastrointestinal, Genitourinary, Musculoskeletal, Integumentary, Endocrine and Eyes/Ears/Nose/Throat Exam Surgical H&P Exam: Normal: HEENT, Normal: Heart, Normal: Lungs, Normal: Extremities, Normal: Abdomen, Normal: Skin and Normal: Neurological Plan Diagnosis/Plan: Unchanged (EGD to assess etiology of GERD. Risks of bleeding and perforation were discussed with the patient and she is in agreement with the plan.) I have reviewed the history and physical and performed a pertinent physical examination on my patient. No changes have occurred unless specified. Time Spent With Patient Time: Total time managing care of this patient today ____ minutes.
[2024-03-12 08:15] VITALS: BP 128/73; PULSE 101; RESP 16; TEMP 36.3; O2SAT 99
--- NOTE | 2024-03-12 08:24 | P.BOP_ITS ---
Brief Operative Note Date of Service: 03/12/24 Pre-op diagnosis: GERD Post-op diagnosis: same Procedure: PROCEDURE DATE: 03/12/2024 PREOPERATIVE DIAGNOSIS: GERD POSTOPERATIVE DIAGNOSIS: ?Same as above. 1) Normal endoscopy PROCEDURE: [id number] with biopsies Surgeon: Lorenzo Schofield M.D.. Ph.D. Sanding Machine Tender Automatic: None ? Anesthesia: IV sedation Estimated blood loss: ?Minimal FINDINGS AND PROCEDURE: ? OPERATIVE INDICATIONS: ?The patient is a 33 year old female known to me who is interested in bariatric surgery. The patient has GERD. Based on this information I recommended an upper endoscopy to evaluate the patient's symptoms. Risks and complications of the surgery were discussed with the patient in advance particularly the possibility of perforation or bleeding that may require surgic al intervention. The patient understood the risks and was in agreement with the plan. ? PROCEDURE: After informed consent was obtained by the patient, the patient was ?transferred to the Operating Room and was placed in the supine position.? After successful induction of IV sedation, a mouth block was inserted and the patient was placed in the left lateral decubitus position. An upper endoscopy was performed next, the oropharynx and esophagus appeared within the normal limits. There was no hiatal hernia. The z-line was smooth. Two biopsies were obtained from the distal esophagus 2-3 cm proximal to the GE junction and two additional biopsies from the GE junction. The stomach was entered and it appeared to be of normal size. There was no gastritis. There was no stricture or ulcer. A biopsy was obtained from the gastric fundus and the antrum. No significant bleeding was noted from any of the biopsy sites. Retroflexion of the scope confirmed a normal GE junction. The scope was then advanced into the duodenum which appeared to be normal as well. At that point the duodenum ?and the stomach were decompressed and the scope was withdrawn from the patient's mouth. The patient extubated and was transferred in stable condition to the Recovery Room for further care. I was present and performed all steps of the procedure. There were no residents to assist with this case. Homer Schofield M.D., Ph.D. Surgeon: Melo Schofield MD Anesthesia: MAC Was an Sanding Machine Tender Automatic used for this Procedure?: No Estimated blood loss (mL): 0 IV fluids (mL): 400 Urine output (mL): 0 (No Rogers to record output) Pathology: other (1) antrum x1, 2) fundus x1, 3) GE junction x2, 4) distal esophagus x2) Condition: stable Disposition: PACU
[2024-03-12 08:30] VITALS: BP 120/85; PULSE 86; RESP 20; TEMP 36.4; O2SAT 99
== END 2024-03-12 08:50 | disposition home or self-care (01) ==
PROVIDERS: Nurse Practitioner; PCP Internal Medicine; Visit Provider Surgery
PROC: 0DJ08ZZ Inspection of Upper Intestinal Tract, Via Natural or Artificial Opening Endoscopic (ICD-10-PCS; CPT 43235; principal; 2024-03-12 07:30)
DX: K21.9 Gastro-esophageal reflux disease without esophagitis (principal); E66.01 Morbid (severe) obesity due to excess calories; Z68.42 Body mass index [BMI] 45.0-49.9, adult; I10 Essential (primary) hypertension; J45.909 Unspecified asthma, uncomplicated; M54.12 Radiculopathy, cervical region; Z79.82 Long term (current) use of aspirin; Z79.899 Other long term (current) drug therapy
CPT/HCPCS: 43239; 81025; 88305; 88313; 88342; J2003; J2704

== ENCOUNTER → 2024-03-12 06:15 | Outpatient (BNV) | payer OTHER, SELFPAY | PROVIDERS: PCP Internal Medicine; Visit Provider Surgery | DX: K21.9 Gastro-esophageal reflux disease without esophagitis (principal) | CPT/HCPCS: 43239 ==

== ENCOUNTER 2024-04-04 13:00 | Outpatient (AMB) | payer OTHER, SELFPAY ==
--- NOTE | 2024-04-04 12:00 | A.OFFWM_ITS ---
Intake Intake Visit Reasons: (TV) BH Intake Allergies No Known Allergies Allergy (Verified 03/12/24 06:41) PFSH Medical History Hypertension Asthma GERD (gastroesophageal reflux disease) Morbid obesity Cervical radiculopathy Surgical History Hx of section Family History (Updated 01/10/24 @ 14:34 by Vera Trujillo CMA) Family/Other No problems noted. Social History Alcohol intake: never Patient Tobacco Use Status: Never used Tobacco Behavioral Health Assessment Weight Management Therapy Therapy Notes Details PT is a 33 years old Female, who presents for initial visit to complete BH assessment as part of surgical weight loss program. PT reports interested in baristric surgery to lose weight, and being able to maintain her loss and improve medical conditions. PT denies ever been in any type of MH treatment, never in crisis or hospitalized and no ALVAREZ was reported. Presenting Concerns Referral Source WMP-Provider. Reason for referral Completion of behavioral health assessment as part of process for weight-loss surgery. Precipitating Event Obesity Living Situation Current Living Situation Rent At risk of losing current housing? No Satisfied with current living situation? Yes Comments PT lives with her , 2 children, and her mother. Food/Weight/Diet Expectations of change Initial goal to lose 10% of herweight before surgery, which is about 27lbs. Ultimate weight goal: 245lbs before surgery Start weight: 272Lbs Most recent weight - 04/01/2024: 280Lbs PT is implementing the following: Current meal plan: Exercise plan: History/Relationship with food Example of meals before starting the program: Breakfast: Lunch: Dinner: Snacks: Drinks/Liquids: History/Relationship with weight In the last 10 years, the patient's Lowest weight was 180-190Lbs, 4 year ago she was in between 230-232, She give 4 months ago, before she was 262Lbs and then 276Lbs when gave to her child. And in the last 4 months she has gained 4Lbs. Highest weight of her life, is today's weight 280Lbs. Social History Family history and relationship 1 year ago, they have been together for 2 and a half year. They have a baby boy who is 4 years old. Parents are alive, she has 3 siblings on father's side (2 boys/ 1 girl) sand from her mother and father 1 sister. PT reports good family relationships. Parental/Familial production potter obligations 2 has 2 children. 16 years old boy and 4 months boy. Developmental history and status PT received special Ed services in 4th grade to reinforced learning in Math. currently WNL. Social support . parents and siblings. Community support Some friends and co-workers. Anglican/Spirituality Restorationist. Currently doesn't practice. Cultural/Ethnic information PT was born and raised in [place]. Moved to [place] in 2017. Patient is Colombian-speaking. Speaks some Cymraes but for medical purposes rather Colombian. Legal Involvement and History Current or historical involvement with the legal system? None reported Education Highest grade completed Associate degree in Nursing. Currently enrolled in educational program? No Interested in further educational program? Yes Educational Interests/Skills Would like to work in the healthcare. Employment Employment Status Other (On Maternity leave now. 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 ) Wants help to find employment? No Financial Situation Describe current financial situation Comfortable Financial assistance? Other ([facility] for the baby and medical insurance. ) Service Service? No Mental Health and Addiction Treatment Current/Past substance abuse? No Comments Alcohol: Socially or on Holidays. Cigarettes/Tobacco: None Cannabis/Edibles: None. Current/Past addictive behavior concerns? No Psychiatric history PT reports she has never been counseling, ever been in crisis or inpatient for mental health. There is no history and/or current concern about SI/SA and self-harm or other harm. Medical and Physical Health Summary Additional Medical History not covered in history None Sexual History concerns None reported Physical exam in the last year? No Pain Screening Current pain? Yes Pain in the last few months? Yes Comments Knee and back pain. Medications Is the patient compliant with medications? Yes Does the patient have Dotson Guardian in place? Not applicable Does the patient use complimentary health approaches? No Trauma/Abuse History History of trauma? No Questionnaires PHQ-9 Over the last 2 weeks, how often have you been bothered by any of the following problems? 1. Little interest or pleasure in doing things: nearly every day 2. Feeling down, depressed, or hopeless: not at all 3. Trouble falling or staying asleep, or sleeping too much: nearly every day 4. Feeling tired or having little energy: nearly every day 5. Poor appetite or overeating: nearly every day 6. Feeling bad about yourself - or that you are a failure or have let yourself or your family down: not at all 7. Trouble concentrating on things, such as reading the newspaper or watching television: not at all 8. Moving or speaking so slowly that other people could have noticed. Or the opposite - being so fidgety or restless that you have been moving around a lot more than usual: not at all 9. Thoughts that you would be better off or of hurting yourself in some way: not at all Total score: 12 Depression Screening Interpretation: Positive (scores from new PT pack scanned at initial visit. ) Depression Screening Done: Yes Source: Developed by Drs. Wing Carrillo, Radha Burgos, Hao Feliciano and colleagues, with an educational bereket from [employer]. Binge Eating Scale Group 1 A. I don't feel self-conscious about my wt. or body size when I'm with others. B. I feel concerned about how I look to others, but it normally does not make me fell disappointed with myself C. I do get self-conscious about my appearance and wt. which makes me feel disappointed in myself. D. I feel very self-conscious about my wt. and frequently I feel intense shame and disgust for myself. I try to avoid social contacts because of my self- consciousness. Response Group 1: A Group 2 A. I don't have any difficulty eating slowly in the proper manner. B. Although I seem to gobble down foods, I don't end up feeling stuffed because of eating to much. C. At times, I tend to eat quickly and then, I feel uncomfortably full afterwards. D. I have the habit of bolting down my food, without really chewing it. When this happens I usually feel uncomfortably stuffed because I've eaten to much. Response Group 2: D Group 3 A. I feel capable to control my eating urges when I want to. B. I feel like I have failed to control my eating more than the average person. C. I feel utterly helpless when it comes to feeling in control of my eating urges. D. Because I feel so helpless about controlling my eating I have become very desperate about trying to get control. Response Group 3: B Group 4 A. I don't have the habit of eating when I'm bored. B. I sometimes eat when I'm bored, but often I'm able to get busy and get my mind off food. C. I have a regular habit of eating when I'm bored, but occasionally, I can use some other activity to get my mind off eating. D. I have a strong habit of eating when I'm bored. Nothing seems to help me breath the habit. Response Group 4: A Group 5 A. I'm usually physically hungry when I eat something. B. Occasionally, I eat something on impulse even though I really am not hungry. C. I have the regular habit of eating foods, that I might not really enjoy, to satisfy a hungry feeling even though physically, I don't need the food. D. Although I'm not physically hungry, I get a hungry feeling in my mouth that only seems to be satisfied when I eat a food, like sandwich, that fills my mouth. Sometimes, when I eat the food to satisfy my mouth hunger, I then spit the food out so I won't gain weight. Response Group 5: A Group 6 A. I don't feel any guilt or self-hate after I overeat. B. After I overeat, occasionally I feel guilt or self-hate. C. Almost all the time I experience strong guilt or self-hate after I overeat. Response Group 6: A Group 7 A. I don't lose total control of my eating when dieting even after periods when I overeat. B. Sometimes when I eat a forbidden food on a diet, I feel like I blew it and eat even more. C. Frequently, I have the habit of saying to myself, I've blown it now, why not go all the way, when I overeat on a diet. When that happens I eat more. D. I have a regular habit of starting a strict diets for myself but I break the diets by going on an eating binge. My life seems to be either a feast or famine. Response Group 7: D Group 8 A. I rarely eat so much food that I feel uncomfortably stuffed afterwards. B. Usually about once a month, I each such a quantity of food, I end up feeling very stuffed. C. I have regular periods during the month when I eat large amounts of food, either at mealtime or at snacks. D. I eat so much food that I regularly feel quite uncomfortable after eating and sometimes a bit nauseous. Response Group 8: A Group 9 A. My level of calorie intake does not go up very high or go down very low on a regular basis. B. Sometimes after I overeat, I will try to reduce my caloric intake to almost nothing to compensate for the excess calories I've eaten. C. I have a regular habit of overeating during the night. It seems that my routine is not to be hungry in the morning but overeat in the evening. D. In my adult years, I have had week-long periods where I practically starve myself. This follows periods when I overeat. It seems I live a life of either feast or famine. Response Group 9: B Group 10 A. I usually am able to stop eating when I want to. I know when enough is enough. B. Every so often, I experience a compulsion to eat which I can't seem to control. C. Frequently, I experience strong urges to eat which I seem unable to control, but at other times I can control my eating urges. D. I feel incapable of controlling urges to eat. I have a fear of not being able to stop eating voluntarily. Response Group 10: A Group 11 A. I don't have any problem stopping eating when I feel full. B. I usually can stop eating when I feel full but occasionally overeat leaving me feeling uncomfortably stuffed. C. I have a problem stopping eating once I start and usually I feel uncomfortably stuffed after I eat a meal. D. Because I have a problem not being able to stop eating when I want, I sometimes have to induce vomiting to relieve my stuffed feeling. Response Group 11: A Group 12 A. I seem to eat just as much when I'm with others, Family social gatherings as when I'm by myself. B. Sometimes, when I'm with other persons, I don't eat as much as I want to eat because I'm self-conscious about my eating. C. Frequently, I eat only a small amount of food when others are present, because I'm very embarrassed about my eating. D. I feel so ashamed about overeating that I pick times to overeat when I know no one will see me. I feel like a closet eater. Response Group 12: A Group 13 A. I eat three meals a day with only an occasional between meal snack. B. I eat 3 meals a day, but I also normally snack between meals. C. When I am snacking heavily, I get in the habit of skipping regular meals. D. There are regular periods when I seem to be continually eating, with no planned meals. Response Group 13: D Group 14 A. I don't think much about trying to control unwanted eating urges. B. At least some of the time, I feel my thoughts are pre-occupied with trying to control my eating urges. C. I feel that frequently I spend much time thinking about how much I ate or about trying not to eat anymore. D. It seems to me that most of my waking hours are pre-occupied by thoughts about eating or not eating. I feel like I'm constantly struggling not to eat. Response Group 14: A Group 15 A. I don't think about food a great deal. B. I have strong craving for food but they last only for brief periods of time. C. I have days when I can't seem to think about anything else but food. D. Most of my days seem to be pre-occupied with thoughts about food. I feel like I live to eat. Response Group 15: A Group 16 A. I usually know whether or not I'm physically hungry. I take the right portion of food to satisfy me. B. Occasionally, I feel uncertain about knowing whether or not I'm physically hungry. A these times it's hard to know how much food I should take to satisfy me. C. Even though I might know how many calories I should eat, I don't have any idea what is a normal amount of food for me. Response Group 16: A Binge Eating Score: 11 Score less than 17 Minimal Risk Score between 18-26 Moderate Risk Score between 27-46 High Risk Assessment & Plan Assessment & Plan (1) Adjustment disorder, unspecified: Code(s): F43.20 - Adjustment disorder, unspecified (2) Inappropriate diet or eating habits: Code(s): Z72.4 - Inappropriate diet and eating habits Plan PT not cleared yet, as assessment is not finished. PHQ-9 administered again at next visit. She will return on 04/22/2023 to complete assessment. Telehealth Telehealth Telehealth Platform: [facility] Location of provider rendering services: practice address Location of patient: address on file Patient Identification confirmed using: Name, : Yes Telehealth method: voice only Patient verbally consented to treatment: Yes Patient verbally consented to billing insurance company: Yes Patient informed of any privacy concerns related to visit: Yes Minutes spent on Phone/Video with Pt.: 60 Coding Level of Care Code New Pt Tele Psy Diag Eval ([id number]) Patient Type New Diagnoses Adjustment disorder, unspecified F43.20 Inappropriate diet or eating habits Z72.4 Time Spent (min) 60
== END 2024-04-04 13:26 | disposition home or self-care (01) ==
LOC: HO.HBST 13:01
PROVIDERS: PCP Internal Medicine; Visit Provider Counselor Mental Health
DX: F43.20 Adjustment disorder, unspecified (principal); Z72.4 Inappropriate diet and eating habits
CPT/HCPCS: 90791

== ENCOUNTER 2024-05-06 13:02 | Emergency (ER) | payer OTHER, SELFPAY ==
[2024-05-06 13:50] VITALS: BP 181/106; PULSE 116; RESP 18; TEMP 37.6; O2SAT 99; BMI 48.7
--- NOTE | 2024-05-06 13:51 | ED.GENADULT ---
HPI - General Adult General Chief complaint: Upper Respiratory Symptoms Stated complaint: SOB Time Seen by Provider: 05/06/24 15:15 Source: patient Mode of arrival: ambulatory Limitations: no limitations History of Present Illness ED Provider: JORGE MASCORRO PA-C HPI narrative: 33-year-old female with pmhx for morbid obesity, hypertension, GERD, asthma presents to the ED today for evaluation of chest tightness, shortness of breath, N/V/D, sore throat, nasal congestion, myalgias, headache x24 hours. Able to tolerate solids/ liquids at home. 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 Noted to be hypertensive. on review of prior vitals, around her baseline. denies chest pain, palpitations, sob, vision changes. did not take her BP meds this morning and it does not appear that she is totally compliant with them. Related Data Home Medications ?Medication ?Instructions ?Recorded ?Confirmed aspirin 81 mg tablet,delayed 81 mg PO DAILY 01/10/24 03/12/24 release (Adult Aspirin Regimen) nifedipine 30 mg tablet,extended 30 mg PO DAILY 01/10/24 03/12/24 release 24 hr famotidine 20 mg tablet (Pepcid) 20 mg PO DAILY 02/07/24 03/12/24 Previous Rx's ?Medication ?Instructions ?Recorded vitamin#30 30 mg iron-10 1 cap PO DAILY #30 caps 05/07/23 mg iron-folic acid 1 mg-omg3 capsule albuterol sulfate 90 mcg/actuation 2 inh inhalation Q20M PRN wheezing 05/06/24 breath activated powder inhaler #1 ea prednisone 20 mg tablet 40 mg (2 x 20 mg) PO DAILY 5 days 05/06/24 #10 tabs Allergies Allergy/AdvReac Type Severity Reaction Status Date / Time No Known Allergies Allergy Verified 05/06/24 13:51 Review of Systems Review of Systems: Yes all other systems are reviewed and are negative PMFSH Past Medical History Attestation statement: The following information was validated with the patient. Source: old records reviewed and nursing notes reviewed Medical History Hypertension Asthma GERD (gastroesophageal reflux disease) Morbid obesity Cervical radiculopathy Surgical History Hx of section Family History Family History Family/Other No problems noted. Social History Social History Alcohol intake: never Patient Tobacco Use Status: Never used Tobacco Advance Directives: No Advance Directives Information Provided: No Physical Exam ED Vital Signs: Vital Signs - 24 hr 05/06/24 13:50 Temperature 99.7 F Pulse Rate 116 H Respiratory Rate 18 Blood Pressure 181/106 H Pulse Oximetry 99 Oxygen Delivery Method Room Air BMI result Body Mass Index 48.7 hypertensive, tachycardic, low grade fever General: Well appearing, in no acute distress. Skin: Warm, dry, intact. No rashes or lesions. Head: Normocephalic, atraumatic. EENT: Hearing is intact b/l. Conjunctiva clear. PERRLA. EOM intact. Moist mucous membranes.? Posterior oropharynx slightly erythematous without tonsillar exudates or edema. No peritonsillar masses. Uvula midline. Controlling secretions and speaking complete sentences throat Neck: Supple without LAD. FROM. Trachea midline.? Cardiac: Chest wall symmetric. RRR Lungs: Normal respiratory effort without accessory muscle use. Bronchospastic cough. CTA bilaterally. Abdomen: Soft, non-tender, non-distended. No rebound tenderness or guarding. Positive BS x4. Back: No midline spinous or paraspinal tenderness. No step off deformity. Ext: Upper and lower extremities atraumatic, without tenderness, deformity, swelling or erythema Neuro: AOx3. Normal speech. Ambulating with steady gait. Course Reevaluation(s) Reevaluation #1: Patient tested negative for covid, rsv, strep throat. She tested positive for influenza a. ekg showing sinus tachycardia, rate of 119 no acute ischemic changes or st elevations. > discussed work up results with patient. declines tamiflu at this time. given hx of asthma, will sent refill of albuterol to her pharmacy along with short course of prednisone. She is not in any respiratory distress. No adventitious lung sounds in the ED. I do not feel she would benefit from breathing treatment at this time. will discharge home w/ refill of her albuterol and short course of prednisone. > patient tachy w/ low grade fever likely due to viral syndrome. Patient has remained stable throughout ED visit today. Discussed worrisome signs and symptoms and when to return to the ED. All questions answered at this time. Patient is agreeable with disposition and stable for discharge. Medical Decision Making Medical Decision Making [facility] Narrative: 33-year-old female with pmhx for morbid obesity, hypertension, GERD, asthma presents to the ED today for evaluation of chest tightness, shortness of breath, N/V/D, sore throat, nasal congestion, myalgias, headache x24 hours. Hypertensive, tachycardic, low grade temp 99.7F. she is nontoxic appearing and in NAD. Posterior oropharynx slightly erythematous without edema. No tonsillar exudates or peritonsillar masses. Uvula midline. Controlling secretions and speaking in complete sentences. Lungs are CTA bilaterally. bronchospastic cough. No respiratory distress. no rashes. abdomen benign. Differential diagnosis includes viral syndrome, strep throat, arrhythmia. lower suspicion for bronchitis, pneumonia. unlikely ACS. Plan for ekg, viral/ strep swabs. Differential Diagnosis Differential Diagnoses: The differential diagnosis associated with the presentation includes as above. Admission/Observation not indicated Lab Data [facility] Lab Attestation statement: I reviewed the patient's lab results. as above. Labs: Lab Results 05/06/24 Range/Units 14:05 Influenza Type A (PCR) POSITIVE A (Negative) Influenza Type B (PCR) NEGATIVE (Negative) RSV RNA Qual (PCR) NEGATIVE (Negative) SARS-CoV-2 RNA (RT-PCR) NEGATIVE (Negative) S. pyogenes GrpA JARRELL Negative (Negative) Independent Interpretation I performed an independent interpretation of an: EKG Interpretation: EKG showing sinus tachycardia with a rate of 119 beats per minute, QT 320, QTC 450, no acute ischemic changes or ST elevations. External Record Review External record reviewed: Inpatient record Prescription Management I considered prescription management with: Other (prednisone, albuterol) Chronic Conditions Patient?s care impacted by: Hypertension and Other (asthma) Social Determinants Patient?s care significantly limited by Social Determinants of Health including: Other Social Determinant of Health Critical Care Time Critical Care Time Critical Care Time: No Discharge Plan Discharge Clinical Impression: Influenza A Patient Disposition: Home, Self-Care Instructions: Influenza (ED) Additional Instructions: You tested negative for strep throat, covid, and RSV. You tested positive for influenza A. Treatment for this is symptomatic and does not require antibiotic treatment. You may take ajob-tpy-pgwtcej cough medicine such is Robitussin. Alter ibuprofen and Tylenol for fevers and body aches. You may also purchase fyhu-kaf-hcevniv Chloraseptic spray tp spray at the back of the throat for throat pain. I have sent prednisone, a steroid, to your pharmacy for you to take over the next 5 days to help with your breathing. An albuterol inhaler has been sent to your pharmacy. Use this as needed for wheezing or shortness of breath. Use this with caution and if you find yourself using this more often without improvement, please come to the emergency department as you may require further treatment. Follow-up with your PCP. If symptoms persist or worsen please return to the emergency department. The case of an emergency call 911. Prescriptions: New prednisone 20 mg tablet 40 mg PO DAILY 5 Days Qty: 10 0RF albuterol sulfate 90 mcg/actuation aerosol powdr breath activated 2 inh inhalation Q20M PRN (Reason: wheezing) Qty: 1 0RF No Action PNV #[id number] 30 mg iron-10 mg iron-1 mg capsule 1 cap PO DAILY Qty: 30 2RF famotidine [Pepcid] 20 mg tablet 20 mg PO DAILY nifedipine 30 mg tablet extended release 24hr 30 mg PO DAILY aspirin [Adult Aspirin Regimen] 81 mg tablet,delayed release (DR/EC) 81 mg PO DAILY Referrals: Esdras Leija MD [Primary Care Provider] - Stand Alone Forms: Work/School Release Interventions: ED Discharge Assessment Last Done: 05/06/24 15:38 Discharge Date/Time: 05/06/24 15:39 Print Language: Micronesian
--- NOTE | 2024-05-06 13:52 | ECG_ITS ---
Test Reason : CP Blood Pressure : */* mmHG Vent. Rate : 119 BPM Atrial Rate : 119 BPM P-R Int : 132 ms QRS Dur : 82 ms QT Int : 320 ms P-R-T Axes : 52 15 -40 degrees QTcB Int : 450 ms Sinus tachycardia Minimal voltage criteria for LVH, may be normal variant ( R in aVL ) Nonspecific T wave abnormality Abnormal ECG When compared with ECG of 22-Feb-2024 10:22, Nonspecific T wave abnormality now evident in Anterolateral leads Referred By: Yojana Morgan Electronically Signed By: Brandon Swanson
[2024-05-06 14:23] LABS: IDNOW Serial# 08D9AD1C; Strep A Nucleic Acid Negative (Negative)
[2024-05-06 15:01] LABS: Influenza A PCR POSITIVE (Negative); Influenza B PCR NEGATIVE (Negative); Resp Syncy Virus RNA Qual PCR NEGATIVE (Negative); SARS COV2 PCR INHOUSE NEGATIVE (Negative)
--- OUTSIDE RECORDS SUMMARY | 2024-05-06 15:30 | XMS_ITS | Clinical Summary ---
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?C (98.2 ??F) 10/01/2023 7:51 PM ED T Respiratory Rate 20 10/01/2023 7:51 PM EDT Oxygen Saturation 100% 10/01/2023 7:51 PM EDT Inhaled Oxygen Concentration - - Weight - - Height - - Body Mass Index - - Plan of Treatment Not on file
--- OUTSIDE RECORDS SUMMARY | 2024-05-06 15:30 | XMS_ITS | Clinical Summary ---
Author Organization [facility] it Address [address] [place] [address] Care Team Providers Care Groundskeeping Maintenance Name Role Phone Lashonda Brown MD Primary Care Prov ider Allergies No known active allergies Active Problems Problem Noted Date Diagnosed Date Allergic rhinitis 03/20/2024 Asthma 03/20/2024 Morbid obesity with BMI of 40.0-44.9, adult 03/02 Immunizations Name Administration Dates Next Due Influenza trivalent, 0.5mL, preservative free (Fluarix; FluLaval; Fluzone) ages 6mo and older (Afluria) 3 years and older 12/06/2018 Social History Tobacco Use Types Packs/Day Years Used Date Smoking Tobacco: Never Assessed Sex and Gender Information Value Date Recorded Sex Assigned at Not on file Gender Identity Not on file Sexual Orientation Not on file Obstetrics History Last Filed Vital Signs Vital Sign Reading Time Taken Comments Blood Pressure 150/93 11/06/2022 9:09 AM EDT Pulse 98 11/06/2022 9:09 AM EDT Temperature - - Respiratory Rate - - Oxygen Saturation - - Inhaled Oxygen Concentration - - Weight 119 kg (262 lb 1.3 oz) 11/06/2022 9:09 AM EDT Height 165.1 cm (5' 5 ) 11/06/2022 9:09 AM EDT Body Mass Index 43.61 11/06/2022 9:09 AM EDT Plan of Treatment Health Maintenance Due Date Last Done Comments Pneumococcal Vaccine: Pediat rics (0 to 5 Years) and At-Risk Patients (6 to 64 Years) (1 of 2 - PCV) 1994 DTaP,Tdap,and Td Vaccines (1 - Tdap) 11/29/2007 Hepatitis B Vaccines (1 of 3 - 19+ 3-dose series) 11/29/2007 Cervical Cancer Screening: P ap Smear 2009 Depression Screening 03/01/2022 HIV Screening 03/01/2022 Hepatitis C Screening 03/01/2022 Social Influencers of Health Screening 03/01/2022 COVID-19 Vaccine (1 2023-2 5 season) 2023 Influenza Vaccine (#1) 2023 12/06/2018 Cholesterol Screening (Lipid Panel) 11/07/2027 11/06/2022 HIB Vaccines Aged Out No longer eligi ble based on patient's age to complete this topic HPV Vaccines Aged Out No longer eligi ble based on patient's age to complete this topic Hepatitis A Vaccines Aged Out No long er eligible based on patient's age to complete this topic IPV Vaccines Aged Out No longer eligi ble based on patient's age to complete this topic MMR Vaccines Aged Out No longer eligi ble based on patient's age to complete this topic Meningococcal ACWY Vaccine Aged Out N o longer eligible based on patient's age to complete this topic RSV Immunization Patients Un alfreda 20 months Aged Out No longer eligible b ased on patient's age to complete this topic Varicella Vaccines Aged Out No longer eligible based on patient's age to complete this topic Procedures Procedure Name Priority Date/Time Associated Diagnosis Comments EXTERNAL CLINICAL LAB 02/22/2024 EXTERNAL CLINICAL LAB 02/22/2024 LIPID PANEL Routine 11/06/2022 from Last 3 Months or Most Recently Relevant to Health Maintenance Results * External clinical lab (02/22/2024) Only the most recent of2 resultswithin the time period is included. Provider [facility] BLOOD ORDERA BLES * Lipid panel (11/06/2022) LDL/HDL Ratio 3 0 - 4 Triglycerides 150 0 - 150 mg/dL Cholesterol 157 0 - 200 mg/dL HDL 47 40 mg/dL LDL Cholesterol 80 0 - 100 mg/dL Blood Venous blood specimen / Unknown Historical Provider LAB BLOOD ORDERAB LES from Last 3 Months or Most Recently Relevant to Health Maintenance Care Teams Groundskeeping Maintenance Relationship Specialty Start Date End Date Lashonda Brown MD PCP - General 05/04/23
[2024-05-06 15:38] VITALS: BP 181/106; PULSE 116; RESP 18; TEMP 37.6; O2SAT 99
== END 2024-05-06 15:39 | disposition home or self-care (01) ==
PROVIDERS: Physician Assistant Medical; Emergency Provider Emergency Medicine; PCP Internal Medicine
DX: J10.1 Influenza due to other identified influenza virus with other respiratory manifestations (principal); R06.02 Shortness of breath; R07.89 Other chest pain; R11.2 Nausea with vomiting, unspecified; R09.81 Nasal congestion; M79.10 Myalgia, unspecified site; R51.9 Headache, unspecified; Z03.818 Encounter for observation for suspected exposure to other biological agents ruled out
CPT/HCPCS: 0241U; 87651; 93005; 99283

== ENCOUNTER 2024-06-19 12:14 | Outpatient (AMB) | payer OTHER, SELFPAY ==
--- NOTE | 2024-06-19 12:05 | A.OFFWM_ITS ---
Intake Intake Visit Reasons: VIDEO F/U Allergies No Known Allergies Allergy (Verified 05/06/24 13:51) [facility] Medical History Hypertension Asthma GERD (gastroesophageal reflux disease) Morbid obesity Cervical radiculopathy Surgical History Hx of section Family History Family/Other No problems noted. Social History Alcohol intake: never Patient Tobacco Use Status: Never used Tobacco Behavioral Health Assessment Weight Management Therapy Therapy Notes Details The patient is a 33-year-old female presenting for her second visit to complete a behavioral health assessment as part of the surgical weight loss program. She reports interest in bariatric surgery for weight loss, with the goal of achieving sustained weight loss and improving her medical conditions. The patient denies any history of mental health treatment, past hospitalizations, or behavioral health crises. She also denies any recent or past safety concerns related to suicidal ideation (SI), suicidal attempts (SA), self-harm, or harm to others. There is no reported history of substance use. Additionally, there is no evidence of stress or emotional eating, and her scores on the BES indicate a low risk for binge eating behavior. The PHQ-9 scores show no active symptoms or concerns related to depression. The mental status exam was within normal limits, suggesting that the patient's overall functioning is not impaired. At this time, the patient is cleared from a behavioral health standpoint. She will be seen again in approximately one month to receive support with habit- building, commitment, and maintaining consistency with program expectations. Presenting Concerns Referral Source WMP-Provider. Reason for referral Completion of behavioral health assessment as part of process for weight-loss surgery. Precipitating Event Obesity Living Situation Current Living Situation Rent At risk of losing current housing? No Satisfied with current living situation? Yes Comments PT lives with her , 2 children, and her mother. Food/Weight/Diet Expectations of change Initial goal is to lose 10% of her weight before surge ry, which is about 27lbs. Ultimate weight goal: 245lbs before surgery Start weight: 272Lbs Most recent weight - 04/01/2024: 280Lbs Weight as of 06/10/2024: 295Lbs (PT has gained weight) PT is implementing the following: Current meal plan: a combination of shakes and 2 meals. Exercise plan: Walking and Sara. Not tracking calories Scale: No Texting with provider: No. Last time: 03/13/2024. History/Relationship with food PT reports she used to eat everything she liked and wanted. She used to eat fast food multiple times at week, at least 4 times. Also, she used to skip breakfast and then she would have lunch and dinner. Meals would be style, with multiple carbs in 1 meal and some fried foods. On the other hand, she loves Hersheys and almonds and she used to eat 1-2 at day. Example of meals before starting the program: Breakfast: skip Lunch: fast food (McDonalds, Burger Lev, or anything she wanted). McChicken w/ fries and soda or coffee. Dinner: rice, beans, meat and fried plantains. Never salads. Snacks: chips, chocolate. Drinks/Liquids: water, coffee (2) with cream and sugar. 1-2 diet soda at day. History/Relationship with weight In the last 10 years, the patient's Lowest weight was 180-190Lbs, 4 year ago she was in between 230-232, She give 4 months ago, before she was 262Lbs and then 276Lbs when gave to her child. And in the last 4 months she has gained 4Lbs. Highest weight of her life, is today's weight 280Lbs. . PT reports weight gain and she believes this is related to the contraceptive injection. History/Relationship with dieting Herbalife shakes, self-diets, exercise. Binge Eating Do you frequently eat large amounts of food in short periods of time, not feeling physically hungry? No Do you feel out of control when you eat a large amount of food in a short period of time? No Do you eat large amounts of food rapidly and typically alone? No Night Eating Do you wake up at least once during the night to eat? No If you wake up in the night, do you find that it is necessary to eat something in order to fall back asleep? No Do you have little or no appetite in the morning and feel very hungry in the evening, often overeating between dinner and when you go to bed? No Social History Family history and relationship 1 year ago, they have been together for 2 and a half year. They have a baby boy who is 4 years old. Parents are alive, she has 3 siblings on father's side (2 boys/ 1 girl) sand from her mother and father 1 sister. PT reports good family relationships. Parental/Familial corporation pilot obligations 2 has 2 children. 16 years old boy and 4 months boy. Developmental history and status PT received special Ed services in 4th grade to reinforced learning in Math. currently [employer]. Social support . parents and siblings. Community support Some friends and co-workers. Latter Day/Spirituality Bahai. Currently doesn't practice. Cultural/Ethnic information PT was born and raised in [place]. Moved to [place] in 2017. Patient is [place]ian-speaking. Speaks some Iranian but for medical purposes rather Malawian. Legal Involvement and History Current or historical involvement with the legal system? None reported Education Highest grade completed Associate degree in Nursing. Currently enrolled in educational program? No Interested in further educational program? Yes Educational Interests/Skills Would like to work in the healthcare. Employment Employment Status Other (On Maternity leave now. 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 She also does [employer]. ) Wants help to find employment? No Meaningful activities Reading, listen to music. Financial Situation Describe current financial situation Comfortable Financial assistance? Other ([facility] for the baby and medical insurance. ) Service Service? No Mental Health and Addiction Treatment Current/Past substance abuse? No Comments Alcohol: Socially or on Holidays. Cigarettes/Tobacco: None Cannabis/Edibles: None. Current/Past addictive behavior concerns? No Psychiatric history PT reports she has never been counseling, ever been in crisis or inpatient for mental health. There is no history and/or current concern about SI/SA and self-harm or other harm. Medical and Physical Health Summary Additional Medical History not covered in history None Sexual History concerns None reported Physical exam in the last year? No Pain Screening Current pain? Yes Pain in the last few months? Yes Comments Knee and back pain. Medications Is the patient compliant with medications? Yes Does the patient have Dotson Guardian in place? Not applicable Does the patient use complimentary health approaches? No Trauma/Abuse History History of trauma? No Questionnaires PHQ-9 Over the last 2 weeks, how often have you been bothered by any of the following problems? 1. Little interest or pleasure in doing things: not at all 2. Feeling down, depressed, or hopeless: several days 3. Trouble falling or staying asleep, or sleeping too much: not at all 4. Feeling tired or having little energy: several days 5. Poor appetite or overeating: not at all 6. Feeling bad about yourself - or that you are a failure or have let yourself or your family down: several days 7. Trouble concentrating on things, such as reading the newspaper or watching television: not at all 8. Moving or speaking so slowly that other people could have noticed. Or the opposite - being so fidgety or restless that you have been moving around a lot more than usual: not at all 9. Thoughts that you would be better off or of hurting yourself in some way : not at all Total score: 3 Depression Screening Interpretation: Negative Depression Screening Done: Yes 47654 - PHQ-9 Billing: Yes Source: Developed by Drs. Wing Carrillo, Radha Burgos, Hao Feliciano and colleagues, with an educational bereket from [employer]. Binge Eating Scale Group 1 A. I don't feel self-conscious about my wt. or body size when I'm with others. B. I feel concerned about how I look to others, but it normally does not make me fell disappointed with myself C. I do get self-conscious about my appearance and wt. which makes me feel disappointed in myself. D. I feel very self-conscious about my wt. and frequently I feel intense shame and disgust for myself. I try to avoid social contacts because of my self- consciousness. Response Group 1: A Group 2 A. I don't have any difficulty eating slowly in the proper manner. B. Although I seem to gobble down foods, I don't end up feeling stuffed because of eating to much. C. At times, I tend to eat quickly and then, I feel uncomfortably full afterwards. D. I have the habit of bolting down my food, without really chewing it. When this happens I usually feel uncomfortably stuffed because I've eaten to much. Response Group 2: D Group 3 A. I feel capable to control my eating urges when I want to. B. I feel like I have failed to control my eating more than the average person. C. I feel utterly helpless when it comes to feeling in control of my eating urges. D. Because I feel so helpless about controlling my eating I have become very desperate about trying to get control. Response Group 3: B Group 4 A. I don't have the habit of eating when I'm bored. B. I sometimes eat when I'm bored, but often I'm able to get busy and get my mind off food. C. I have a regular habit of eating when I'm bored, but occasionally, I can use some other activity to get my mind off eating. D. I have a strong habit of eating when I'm bored. Nothing seems to help me breath the habit. Response Group 4: A Group 5 A. I'm usually physically hungry when I eat something. B. Occasionally, I eat something on impulse even though I really am not hungry. C. I have the regular habit of eating foods, that I might not really enjoy, to satisfy a hungry feeling even though physically, I don't need the food. D. Although I'm not physically hungry, I get a hungry feeling in my mouth that only seems to be satisfied when I eat a food, like sandwich, that fills my mouth. Sometimes, when I eat the food to satisfy my mouth hunger, I then spit the food out so I won't gain weight. Response Group 5: A Group 6 A. I don't feel any guilt or self-hate after I overeat. B. After I overeat, occasionally I feel guilt or self-hate. C. Almost all the time I experience strong guilt or self-hate after I overeat. Response Group 6: A Group 7 A. I don't lose total control of my eating when dieting even after periods when I overeat. B. Sometimes when I eat a forbidden food on a diet, I feel like I blew it and eat even more. C. Frequently, I have the habit of saying to myself, I've blown it now, why not go all the way, when I overeat on a diet. When that happens I eat more. D. I have a regular habit of starting a strict diets for myself but I break the diets by going on an eating binge. My life seems to be either a feast or famine. Response Group 7: D Group 8 A. I rarely eat so much food that I feel uncomfortably stuffed afterwards. B. Usually about once a month, I each such a quantity of food, I end up feeling very stuffed. C. I have regular periods during the month when I eat large amounts of food, either at mealtime or at snacks. D. I eat so much food that I regularly feel quite uncomfortable after eating and sometimes a bit nauseous. Response Group 8: A Group 9 A. My level of calorie intake does not go up very high or go down very low on a regular basis. B. Sometimes after I overeat, I will try to reduce my caloric intake to almost nothing to compensate for the excess calories I've eaten. C. I have a regular habit of overeating during the night. It seems that my routine is not to be hungry in the morning but overeat in the evening. D. In my adult years, I have had week-long periods where I practically starve myself. This follows periods when I overeat. It seems I live a life of either feast or famine. Response Group 9: B Group 10 A. I usually am able to stop eating when I want to. I know when enough is enough. B. Every so often, I experience a compulsion to eat which I can't seem to control. C. Frequently, I experience strong urges to eat which I seem unable to control, but at other times I can control my eating urges. D. I feel incapable of controlling urges to eat. I have a fear of not being able to stop eating voluntarily. Response Group 10: A Group 11 A. I don't have any problem stopping eating when I feel full. B. I usually can stop eating when I feel full but occasionally overeat leaving me feeling uncomfortably stuffed. C. I have a problem stopping eating once I start and usually I feel uncomfortably stuffed after I eat a meal. D. Because I have a problem not being able to stop eating when I want, I sometimes have to induce vomiting to relieve my stuffed feeling. Response Group 11: A Group 12 A. I seem to eat just as much when I'm with others, Family social gatherings as when I'm by myself. B. Sometimes, when I'm with other persons, I don't eat as much as I want to eat because I'm self-conscious about my eating. C. Frequently, I eat only a small amount of food when others are present, because I'm very embarrassed about my eating. D. I feel so ashamed about overeating that I pick times to overeat when I know no one will see me. I feel like a closet eater. Response Group 12: A Group 13 A. I eat three meals a day with only an occasional between meal snack. B. I eat 3 meals a day, but I also normally snack between meals. C. When I am snacking heavily, I get in the habit of skipping regular meals. D. There are regular periods when I seem to be continually eating, with no planned meals. Response Group 13: D Group 14 A. I don't think much about trying to control unwanted eating urges. B. At least some of the time, I feel my thoughts are pre-occupied with trying to control my eating urges. C. I feel that frequently I spend much time thinking about how much I ate or about trying not to eat anymore. D. It seems to me that most of my waking hours are pre-occupied by thoughts about eating or not eating. I feel like I'm constantly struggling not to eat. Response Group 14: A Group 15 A. I don't think about food a great deal. B. I have strong craving for food but they last only for brief periods of time. C. I have days when I can't seem to think about anything else but food. D. Most of my days seem to be pre-occupied with thoughts about food. I feel like I live to eat. Response Group 15: A Group 16 A. I usually know whether or not I'm physically hungry. I take the right portion of food to satisfy me. B. Occasionally, I feel uncertain about knowing whether or not I'm physically hungry. A these times it's hard to know how much food I should take to satisfy me. C. Even though I might know how many calories I should eat, I don't have any idea what is a normal amount of food for me. Response Group 16: A Binge Eating Score: 11 Score less than 17 Minimal Risk Score between 18-26 Moderate Risk Score between 27-46 High Risk Assessment & Plan Assessment & Plan (1) Adjustment disorder, unspecified: Code(s): F43.20 - Adjustment disorder, unspecified (2) Inappropriate diet or eating habits: Code(s): Z72.4 - Inappropriate diet and eating habits Plan At this time, the patient is cleared from a behavioral health standpoint. She will be seen again in approximately one month to receive support with habit- building, commitment, and maintaining consistency with program expectations. F/up in 1 month. Next lydia: 07/17/2024 at 11am, Telehealth. Telehealth Telehealth Telehealth Platform: [facility] Location of provider rendering services: other Location of patient: address on file Patient Identification confirmed using: Name, : Yes Telehealth method: video Patient verbally consented to treatment: Yes Patient verbally consented to billing insurance company: Yes Patient informed of any privacy concerns related to visit: Yes Minutes spent on Phone/Video with Pt.: 55 Coding Level of Care Code Established Pt Tele Psytx >53 mins (96129) Patient Type Established Diagnoses Adjustment disorder, unspecified F43.20 Inappropriate diet or eating habits Z72.4 Additional Codes PHQ-9 - 56118 - PHQ-9 Billing: Yes ([id number]) Time Spent (min) 55
== END 2024-06-19 13:20 | disposition home or self-care (01) ==
LOC: HO.HBST 12:14
PROVIDERS: PCP Internal Medicine; Visit Provider Counselor Mental Health
DX: F43.20 Adjustment disorder, unspecified (principal); Z72.4 Inappropriate diet and eating habits
CPT/HCPCS: 90837

== ENCOUNTER 2025-01-15 10:05 | Outpatient (AMB) | payer OTHER, SELFPAY ==
--- NOTE | 2025-01-15 10:05 | MHC.WMTHER ---
Intake Intake Visit Reasons: VIDEO BH Intake Allergies No Known Allergies Allergy (Verified 05/06/24 13:51) [facility] Medical History Hypertension Asthma GERD (gastroesophageal reflux disease) Morbid obesity Cervical radiculopathy Surgical History Hx of section Family History Family/Other No problems noted. Social History Alcohol intake: never Patient Tobacco Use Status: Never used Tobacco Behavioral Health Assessment Weight Management Therapy Therapy Notes Details The patient is a 33-year-old female returning to reestablish care after discontinuing the program in August 2022; her last visit was in May 2022. She reports no current mental health concerns. However, she acknowledges challenges with time management and prioritizing her health, which have impacted her consistency with the meal plan. The patient recognizes the need to adjust her meal plan to better fit her current daily routine and to focus on building sustainable habits. She will return in approximately three weeks to continue working on habit formation and adherence to her nutrition goals. The patient was advised to follow the recommended meal plan support her progress. Presenting Concerns Referral Source WMP-Provider. Reason for referral Behavioral health re-assessment as part of the process for weight-loss surgery. Precipitating Event Obesity Living Situation Current Living Situation Rent At risk of losing current housing? No Satisfied with current living situation? Yes Comments PT lives with her and 2 children. Food/Weight/Diet Expectations of change When the client started the program on February/2024 the initial weight was 272Lbs and the goal was to lose 10% of her weight before surgery, which is about 27lbs. Ultimate weight goal: 245lbs before surgery - However, Pt returned at in December and her initial weight sent as of 10/24/2024 was 289Lbs. PT is uncertain about how much weight she needs to lose before surgery. Weight as of 01/05/2025: 286Lbs PT is implementing the following: Current meal plan: a combination of shakes and 1 meal. - Some days she does another shake instead of the meal. Exercise plan: treadmill in the gym. 4-5 days a week, tries to burn 500cal each day. Scale: yes. Texting with provider: yes, last 01/05 History/Relationship with food PT reports she has been snacking less, including more vegetables on her diet. Example of meals before starting the program: Breakfast: pancakes, north korean toast. Lunch: rice, beans, meat and fried plantains and salads. Dinner: fast food ([employer], [employer], or anything she wanted). Snacks: None. Drinks/Liquids: Cofee: 2 at day soda: none. Juice: none. Water: 6-8 bottles at day. History/Relationship with weight In the last 10 years, the patient's Lowest weight was 180-190Lbs, 4 year ago she was in between 230-232, She give 4 months ago, before she was 262Lbs and then 276Lbs when gave to her child. And in the last 4 months she has gained 4Lbs. Highest weight of her life, is today's weight 280Lbs. . PT reports weight gain and she believes this is related to the contraceptive injection. History/Relationship with dieting Herbalife shakes, self-diets, exercise. Binge Eating Do you frequently eat large amounts of food in short periods of time, not feeling physically hungry? No Do you feel out of control when you eat a large amount of food in a short period of time? No Do you eat large amounts of food rapidly and typically alone? No Night Eating Do you wake up at least once during the night to eat? No If you wake up in the night, do you find that it is necessary to eat something in order to fall back asleep? No Do you have little or no appetite in the morning and feel very hungry in the evening, often overeating between dinner and when you go to bed? No Social History Family history and relationship 1 year ago, they have been together for 2 and a half year. They have a baby boy who is 1 years old. Mother alive, father 2 months ago. She has three siblings on her father's side (two boys and one girl) and one sister from her mother and father. PT reports good family relationships. 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 17 years old boy and 1 year old boy. Developmental history and status PT received special Ed services in 4th grade to reinforced learning in Math. currently WNL. Social support . parents and siblings. Community support Some friends. Baptist/Spirituality Pentecostalism. Currently doesn't practice. Cultural/Ethnic information PT was born and raised in [place]. Moved to [place] in 2017. Patient is Omani-speaking. Speaks some Tajik but for medical purposes rather Omani. Legal Involvement and History Current or historical involvement with the legal system? None reported Education Highest grade completed Associate degree in Nursing. Currently enrolled in educational program? No Interested in further educational program? Yes Educational Interests/Skills Would like to work in the healthcare. 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 No Meaningful activities Reading, listen to music. Financial Situation Describe current financial situation Comfortable Financial assistance? Other ([facility] for the baby and medical insurance. ) Service Service? No Mental Health and Addiction Treatment Current/Past substance abuse? No Comments Alcohol: Socially or on Holidays. Cigarettes/Tobacco: None Cannabis/Edibles: None. Current/Past addictive behavior concerns? No Psychiatric history Pt not currently in counseling and reports she has never been counseling, ever been in crisis or inpatient for mental health. There is no history and/or current concern about SI/SA and self-harm or other harm. Medical and Physical Health Summary Additional Medical History not covered in history None Sexual History concerns None reported Physical exam in the last year? No Pain Screening Current pain? Yes Pain in the last few months? Yes Comments Knee and back pain. Medications Is the patient compliant with medications? Yes Does the patient have Dotson Guardian in place? Not applicable Does the patient use complimentary health approaches? No Trauma/Abuse History History of trauma? No Assessment & Plan Assessment & Plan (1) Adjustment disorder, unspecified: Code(s): F43.20 - Adjustment disorder, unspecified (2) Inappropriate diet or eating habits: Code(s): Z72.4 - Inappropriate diet and eating habits Plan No active psychiatric symptoms or maladaptive eating behaviors were identified that would impede surgical outcomes at this time. The patient is cleared from a behavioral health perspective to proceed with bariatric surgery, and documentation can be submitted for insurance approval as indicated. The patient will return in 3-4 weeks for ongoing support focused on habit building and maintaining readiness for surgery. Next appointment is scheduled for 02/09/2025 at 10:00 am via video. Telehealth Telehealth Telehealth Platform: [employer] Location of provider rendering services: other (Home office. [place], [place]) Location of patient: address on file Patient Identification confirmed using: Name, : Yes Telehealth method: video Patient verbally consented to treatment: Yes Patient verbally consented to billing insurance company: Yes Patient informed of any privacy concerns related to visit: Yes Minutes spent on Phone/Video with Pt.: 55 Coding Level of Care Code Established Pt Tele Psytx >53 mins (49922) Patient Type Established Diagnoses Adjustment disorder, unspecified F43.20 Inappropriate diet or eating habits Z72.4 Time Spent (min) 55
--- OUTSIDE RECORDS SUMMARY | 2025-01-15 12:29 | XMS_ITS | Encounter Summary ---
Author Organization [facility] Address [address] [place] [address] Care Team Providers Care Driver Supervisor Name Role Phone Esdras Leija MD Primary Care Provider [phone] Encounter Details Date Type Department Care Team Description 04/29/2019 Orders Only Adult Med - [place] [address] [place] [address] Melanie Mckenzie PA-C [address] [place] [id number] Social History Tobacco Use Types Packs/Day Years Used Date Smoking Tobacco: Never Smokeless Tobacco: Never Alcohol Use Standard Drinks/Week Comments No 0 (1 standard drink = 0.6 oz pur e alcohol) Sex Assigned at Date Recorded Not on file documented as of this encounter Plan of Treatment Not on file documented as of this encounter Visit Diagnoses Not on filedocumented in this encounter Care Teams Driver Supervisor Relationship Specialty Start Date End Date Esdras Leija MD [address] [place] [address] PCP - General Internal Medicine 10/24/18 05/03/23 documented as of this encounter
--- OUTSIDE RECORDS SUMMARY | 2025-01-15 12:29 | XMS_ITS | Clinical Summary ---
Author Organization [facility] Address [address] [place] [address] Care Team Providers Care Network Relations Consultant Name Role Phone Unavailable Primary Care Provider [...] 118 10/01/2023 7:51 PM EDT Temperature 36.8 C (98.2 F) 10/01/2023 7:51 PM EDT Respiratory Rate 20 10/01/2023 7:51 PM EDT Oxygen Saturation 100% 10/01/2023 7:51 PM EDT Inhaled Oxygen Concentration - - Weight - - Height - - Body Mass Index - - Plan of Treatment Not on file
--- OUTSIDE RECORDS SUMMARY | 2025-01-15 12:29 | XMS_ITS | Encounter Summary ---
Author Organization [employer] [facility] Address [address] [place] [address] Care Team Providers Care Sports Editor Name Role Phone Esdras Leija MD Primary Care Provider [phone] Reason for Visit * Reason Comments E-prescribe Rx Request Encounter Details Date Type Department Care Team Description 02/11/2023 Refill Bariatric Surgery - [place] [address] [facility] [address] [place] [address] Rabia Díaz MD [address] [facility] [address] [place] [address] E-prescribe Rx Request Social History Tobacco Use Types Packs/Day Years [...] on filedocumented in this encounter Care Teams Sports Editor Relationship Specialty Start Date End Date Esdras Leija MD [address] [place], [place] [phone] PCP - General Internal Medicine 10/24/18 05/03/23 documented as of this encounter
--- OUTSIDE RECORDS SUMMARY | 2025-01-15 12:30 | XMS_ITS ---
Author Name [facility] Organization Unknown Encounters Encounter Type Encounter Reason Primary Diagnosis Location Date Emergency Flu-like symptoms Flu-like symptoms [facility] 10/01/2023 Care Team Organization Name Specialty Phone Email Start Date End Da te [facility] 10/14/2024 [facility] SHANE BERNARDO Primary Care 09/08/2022 11/19/19 24
== END 2025-01-15 11:13 | disposition home or self-care (01) ==
LOC: HO.HBST 10:14
PROVIDERS: PCP Internal Medicine; Visit Provider Counselor Mental Health
DX: F43.20 Adjustment disorder, unspecified (principal); Z72.4 Inappropriate diet and eating habits
CPT/HCPCS: 90837

== ENCOUNTER 2025-03-02 22:18 | Emergency (ER) | payer SELFPAY ==
--- NOTE | ~2025-03-02 | US_ITS ---
CLINICAL HISTORY: Vaginal Bleeding US pelvis transabdominal and transvaginal with Doppler Comparison: None provided Findings: Transabdominal scanning performed for overall anatomy. Transvaginal scanning performed for additional detail. Anteverted uterus is 12.5 cm length. Normal myometrium. Endometrium 2 mm thickness. Right ovary 4.3 x 2.3 x 2.3 cm. Small anechoic cyst measuring 1.2 cm. Left ovary is not visualized. Normal color Doppler with arterial/venous spectral tracing of the right ovary. No free fluid. IMPRESSION: 1. Limited examination due to body habitus. Uterus appears unremarkable. No right ovarian torsion. Left ovary is not visualized. This document has been electronically signed by: Charity Dempsey MD on 03/02/2025 23:45:02
--- NOTE | ~2025-03-02 | US_ITS ---
CLINICAL HISTORY: r o ectopic, positive with pain U/S OB transabdominal and transvaginal Comparison: US - US PELVIC AND TRANSVAGINAL - 03/02/25 22:55 EST Findings: Anteverted nongravid uterus. Heterogeneous endometrium 13 mm thickness. Unremarkable left ovary 3.2 x 1.8 x 2.9 cm. Only seen transabdominally. Right ovary 10.5 x 2.2 cm. There is a thick-walled cystic lesion in the right ovary averaging 9 mm diameter, previously averaging 10 mm diameter. No ascites. Impression: 1. Small cystic lesion at the right ovary again noted. This is technically indeterminate and could be an ectopic . There is no embryo demonstrated. Recommend continued beta HCG level follow-up with ultrasound as needed. 2. Unremarkable uterus with no intrauterine . This document has been electronically signed by: Jose Alfredo Durant MD on 03/03/2025 04:20:02
[2025-03-02 22:41] VITALS: BP 175/102; PULSE 100; RESP 20; TEMP 36.8; O2SAT 99; BMI 49.4
--- NOTE | 2025-03-02 22:58 | ED.FEMALEGU ---
HPI - Female Genitourinary General Chief complaint: Vaginal Bleeding Stated complaint: General Medical Time Seen by Provider: 03/02/25 22:56 History of Present Illness ED Provider: Leilani Clifford NP HPI Narrative: 34-year-old female medical history significant for vitamin B1, vitamin-D deficiency, anemia, asthma, GERD, hypertension, prior preeclampsia during last (2023), , presents to the ED for evaluation complaining of lower abdominal discomfort, as well as heavy vaginal bleeding that began today. Patient reports that she does not believe she has had a menstrual cycle for greater than 1 year, this morning she woke up and was having heavy vaginal bleeding with many clots. She reports that she has changed 3 pads in the past 3 hours. She a sexually active, and is not currently on hormonal control. Endorsing lower pelvic pain, but no upper abdominal pain, nor nausea, vomiting. No diarrhea or constipation. No fever or chills. No chest pain or pressure, shortness of breath. No abnormal vaginal discharge. No urinary complaints including dysuria, hematuria, urgency or frequency. No flank pain. Related Data Home Medications ?Medication ?Instructions ?Recorded ?Confirmed aspirin 81 mg tablet,delayed 81 mg PO DAILY 01/10/24 03/12/24 release (Adult Aspirin Regimen) nifedipine 30 mg tablet,extended 30 mg PO DAILY 01/10/24 03/12/24 release 24 hr famotidine 20 mg tablet (Pepcid) 20 mg PO DAILY 02/07/24 03/12/24 Previous Rx's ?Medication ?Instructions ?Recorded vitamins 30 30 mg iron-10 1 cap PO DAILY #30 caps 05/07/23 mg iron-folic acid 1 mg-om3 capsule albuterol sulfate 90 mcg/actuation 2 inh inhalation Q20M PRN wheezing 05/06/24 breath activated powder inhaler #1 ea prednisone 20 mg tablet 40 mg (2 x 20 mg) PO DAILY 5 days 05/06/24 #10 tabs cholecalciferol (vitamin D3) 125 125 mcg PO DAILY #90 caps 06/20/24 mcg (5,000 unit) capsule iron,carbonyl 65 mg-vitamin C 125 1 tab PO DAILY #90 tabs 06/20/24 mg tablet,delayed release (Vitron-C) thiamine HCl (vitamin B1) 100 mg 100 mg PO DAILY #90 tabs 03/21/25 tablet phentermine 37.5 mg capsule 37.5 mg PO DAILY #30 caps 01/23/25 Allergies Allergy/AdvReac Type Severity Reaction Status Date / Time No Known Allergies Allergy Verified 03/02/25 22:49 Review of Systems Review of Systems: ROS is otherwise negative unless mentioned in HPI. [facility] Past Medical History Medical History Hypertension Asthma GERD (gastroesophageal reflux disease) Morbid obesity Cervical radiculopathy Surgical History Hx of section Family History Family History Family/Other No problems noted. Social History Social History Alcohol intake: never Patient Tobacco Use Status: Never used Tobacco Smoked in Last 30 Days: No Use of substances other than those prescribed or required for medical reasons: No Advance Directives: No Advance Directives Information Provided: Yes Physical Exam Exam: Exam: Nursing notes and vital signs reviewed. Constitutional: Well-appearing, NAD. Alert. Oriented X3. Eyes: EOMI. ENT: Pharynx normal. Neck: Normal inspection. Neck supple. CVS: Pulses normal. Respiratory: No respiratory distress. Abdomen: Soft and nontender, nondistended. No CVA tenderness bilaterally. Skin: Skin warm and dry. Normal skin color. Extremities: No lower extremity edema. Neuro: Oriented X 3. No motor deficit. Vital Signs: Vital Signs: Last Vital Signs Temp 98.3 F 03/02/25 22:41 Pulse 112 H 03/03/25 01:48 Resp 20 03/03/25 01:48 BP 176/101 H 03/03/25 01:48 Pulse Ox 98 03/03/25 01:48 O2 Del Method Room Air 03/03/25 01:48 BMI result Body Mass Index 49.4 Course Reevaluation(s) Reevaluation #1: I Yamile Rogers PA-C have accepted care of the patient and signed out pending imaging and final disposition ....I had asked that we repeat H&H I have independently reviewed the following tests: Labs: Initial H&H 12.1 and 37.2, repeat 11.7 and 35.7 Transvaginal ultrasound:Findings: Anteverted nongravid uterus. Heterogeneous endometrium 13 mm thickness. Unremarkable left ovary 3.2 x 1.8 x 2.9 cm. Only seen transabdominally. Right ovary 10.5 x 2.2 cm. There is a thick-walled cystic lesion in the right ovary averaging 9 mm diameter, previously averaging 10 mm diameter. No ascites. Impression: 1. Small cystic lesion at the right ovary again noted. This is technically indeterminate and could be an ectopic . There is no embryo demonstrated. Recommend continued beta HCG level follow-up with ultrasound as needed. 2. Unremarkable uterus with no intrauterine . Paging Dr. Jeffery back with the information Time: 04:24 Consultations Consultation #1: per Dr. Jeffery ..... HCG 8144 with no IUP R ovarian lesion Pelvic exam showed minimal blood per vagina This is ectopic the pt is a Metotrexate candidate Needs to be transferred to [facility] since we do not RN?s certified to give mtx Rh negative pleas mention. That will need rhogam after treatment at [facility] Time: 04:25 Consultation #2: Speaking with Dr. Noland from OBGYN at [facility], he is accepting the transfer Time: 05:43 Medical Decision Making Medical Decision Making MDM Narrative: 10:50 PM 03/02/2025 (Leilani Clifford NP): Upon my assessment, she overall appears well, but does appear uncomfortable. Mildly pale, concerning for underlying anemia due to have a potassium bleeding. We will also have concern for ectopic versus miscarriage, the patient does not know her last menstrual cycle, she is currently sexually active, and has not had a period in over 1 year. Endorsing lower pelvic pain and heavy bleeding, which is concerning. We will obtain ultrasound of the pelvis transvaginally, as well as labs including hCG, urinalysis, and reassess. The translator/interpreter service was utilized, in-person [id number]-- her lab work shows no leukocytosis, however the urinalysis is positive for . The quant is around 8000, but the ultrasound does not show the left ovary, though shows no torsion of the right ovary. It does report that it is a limited exam due to body habitus. This is concerning, as the patient may have an ectopic , I can not exclude this diagnoses. Therefore, I will contact OBGYN and discuss the results with the patient. 0140-- In discussion with BATCH ROOM TECHNICIAN Dr. Jeffery, I have made the following Plan: to perform pelvic examination, to observe the cervix and heavy bleeding, and obtain repeat US. The patient was informed of her results in the triage room area, and reports she is very shocked. She stopped using the Depo shot in May of 2024 because she was gaining too much weight. Will order new TVUS and obtain pelvic. I spoke with the radiology nurse in the ED, they have called in the resident in diagnostic radiology to repeat the ultrasound. 0212-- pelvic exam shows a mildly open cervical os, with no tenderness. Only a mild amount of vaginal bleeding, no clots. Patient reports that her bleeding has significantly improved and has almost completely stopped. I have added on a type and screen, as well as the swabs obtained during her pelvic examination. I communicated the results of the pelvic exam to BATCH ROOM TECHNICIAN Dr. Jeffery, he is awaiting the US results at this time. Patient is agreeable with the plan of care and expressed understanding at this time. Signed out to Alina KAYE Differential Diagnosis Differential Diagnoses: The differential diagnosis associated with the presentation includes Ectopic , spontaneous , , ovarian cyst, ovarian torsion Admission/Observation Consideration of admission/observation: Escalation of care including admission/observation considered (Not indicated) Lab Data MDM Lab Attestation statement: I reviewed the patient's lab results. 03/03/25 02:29 03/03/25 00:40 Labs: Lab Results 03/03/25 03/03/25 03/03/25 Range/Units 00:37 00:40 02:14 WBC 9.1 (4.8-10.8) X10*3/uL RBC 4.62 (4.20-5.50) X10*6/uL Hgb 12.1 D (12.0-16.0) g/dl Hct 37.2 (37.0-47.0) % MCV 80.5 (80.0-98.0) fL MCH 26.2 L (27.0-33.0) pg MCHC 32.5 (31.0-35.0) g/dl RDW 12.6 (11.0-16.0) % Plt Count 226 (160-400) X10*3/uL MPV 12.6 H (9.4-12.3) fL Immature Gran % (Auto) 0.2 (0.0-0.4) % Neut % (Auto) 68.5 (45-73) % Lymph % (Auto) 25.4 (20-40) % [place] % (Auto) 4.0 (2-11) % Eos % (Auto) 1.3 (0-4) % Baso % (Auto) 0.6 (0-2) % Lymph # (Auto) 2.3 (1.2-4.9) X10*3/uL [place] # (Auto) 0.4 (0.1-1.2) X10*3/uL Eos # (Auto) 0.1 (0.0-0.4) X10*3/uL Baso # (Auto) 0.1 (0.0-0.2) X10*3/uL Abs Immat Gran (auto) 0.02 (0.00-0.03) X10*3/uL Absolute Neuts (auto) 6.2 (2.0-8.3) x10*3/uL Absolute Nucleated RBC 0.000 (0.0-0.012) X10*3/uL Nucleated RBC % (auto) 0.0 (0.0-0.2) /100WBC Sodium 141 (135-145) mmol/L Potassium 3.7 (3.3-5.1) mmol/L Chloride 108 (96-108) mmol/L Carbon Dioxide 23 (22-29) mmol/L Anion Gap 14 (12-20) BUN 11 (9-16) mg/dL Creatinine 0.66 (0.5-1.4) mg/dL Estim Creat Clear Calc 158.2 Estimated GFR > 60 Random Glucose 108 (60-115) mg/dL Calcium 9.2 D (8.4-10.2) mg/dL Total Bilirubin 0.3 (0.0-1.0) mg/dL AST 17 (5-31) U/L ALT 24 (0-31) U/L Alkaline Phosphatase 104 (39-117) U/L Total Protein 7.6 (6.5-8.0) g/dL Albumin 4.6 (3.5-5.0) g/dL Beta HCG, Quant 8114 mIU/mL Urine Color Yellow Urine Appearance Clear Urine pH 5.5 (5.0-9.0) Ur Specific [place] 1.010 (1.005-1.025) Urine Protein Negative (Neg-Trace) mg/dL Urine Glucose (UA) Negative (Negative) mg/dL Urine Ketones Negative (Negative) mg/dL Urine Blood Large (3+) H (Negative) Urine Nitrite Negative (Negative) Ur Leukocyte Esterase Negative (Negative) Urine RBC >20 H (0-2) /HPF Urine WBC 0-5 (0-5) /HPF Ur Squamous Epith Cells 0-2 (0-2) /HPF Urine Bacteria None Seen (None Seen) Hyaline Casts 0-2 (0-2) /LPF Urine Test POSITIVE H (NEGATIVE) T. vaginalis (PCR) (Not Detect) Bact vaginosis (PCR) (Negative) C. krusei/glabrata (PCR) (Not Detect) Liss group (PCR) (Not Detect) Blood Type O Negative Antibody Screen NEGATIVE 03/03/25 03/03/25 Range/Units 02:15 02:29 WBC (4.8-10.8) X10*3/uL RBC (4.20-5.50) X10*6/uL Hgb 11.7 L (12.0-16.0) g/dl Hct 35.7 L (37.0-47.0) % MCV (80.0-98.0) fL MCH (27.0-33.0) pg MCHC (31.0-35.0) g/dl RDW (11.0-16.0) % Plt Count (160-400) X10*3/uL MPV (9.4-12.3) fL Immature Gran % (Auto) (0.0-0.4) % Neut % (Auto) (45-73) % Lymph % (Auto) (20-40) % [place] % (Auto) (2-11) % Eos % (Auto) (0-4) % Baso % (Auto) (0-2) % Lymph # (Auto) (1.2-4.9) X10*3/uL [place] # (Auto) (0.1-1.2) X10*3/uL Eos # (Auto) (0.0-0.4) X10*3/uL Baso # (Auto) (0.0-0.2) X10*3/uL Abs Immat Gran (auto) (0.00-0.03) X10*3/uL Absolute Neuts (auto) (2.0-8.3) x10*3/uL Absolute Nucleated RBC (0.0-0.012) X10*3/uL Nucleated RBC % (auto) (0.0-0.2) /100WBC Sodium (135-145) mmol/L Potassium (3.3-5.1) mmol/L Chloride (96-108) mmol/L Carbon Dioxide (22-29) mmol/L Anion Gap (12-20) BUN (9-16) mg/dL Creatinine (0.5-1.4) mg/dL Estim Creat Clear Calc Estimated GFR Random Glucose (60-115) mg/dL Calcium (8.4-10.2) mg/dL Total Bilirubin (0.0-1.0) mg/dL AST (5-31) U/L ALT (0-31) U/L Alkaline Phosphatase (39-117) U/L Total Protein (6.5-8.0) g/dL Albumin (3.5-5.0) g/dL Beta HCG, Quant mIU/mL Urine Color Urine Appearance Urine pH (5.0-9.0) Ur Specific [place] (1.005-1.025) Urine Protein (Neg-Trace) mg/dL Urine Glucose (UA) (Negative) mg/dL Urine Ketones (Negative) mg/dL Urine Blood (Negative) Urine Nitrite (Negative) Ur Leukocyte Esterase (Negative) Urine RBC (0-2) /HPF Urine WBC (0-5) /HPF Ur Squamous Epith Cells (0-2) /HPF Urine Bacteria (None Seen) Hyaline Casts (0-2) /LPF Urine Test (NEGATIVE) T. vaginalis (PCR) NOT DETECTED (Not Detect) Bact vaginosis (PCR) NEGATIVE (Negative) C. krusei/glabrata (PCR) NOT DETECTED (Not Detect) Liss group (PCR) NOT DETECTED (Not Detect) Blood Type Antibody Screen Radiology Impression Discussion of test interpretation with radiology: I have reviewed the radiologist's reading. Radiologist Impression: IMPRESSION: 1. Limited examination due to body habitus. Uterus appears unremarkable. No right ovarian torsion. Left ovary is not visualized. Independent Historian Clinical information obtained from an independent historian. History obtained from or confirmed by: Spouse External Record Review External record reviewed: Outpatient record and Other (prior ED visit) Chronic Conditions Patient?s care impacted by: Hypertension Social Determinants Patient?s care significantly limited by Social Determinants of Health including: Problems related to primary support group Discharge Plan Discharge Clinical Impression: Ectopic of right ovary Patient Disposition: [facility] Transfer Details: Per Dr. Jose D hinton, patient requires care at [facility] Prescriptions: No Action Vitron-C 65 mg iron- 125 mg tablet,delayed release (DR/EC) 1 tab PO DAILY Qty: 90 0RF Rx Instructions: swallow whole; do not chew/break/dissolve/open cholecalciferol (vitamin D3) 125 mcg (5,000 unit) capsule 125 mcg PO DAILY Qty: 90 0RF thiamine HCl (vitamin B1) 100 mg tablet 100 mg PO DAILY Qty: 90 0RF phentermine 37.5 mg capsule 37.5 mg PO DAILY Qty: 30 0RF Rx Instructions: must administer 30 minutes before or 1-2 hours after breakfast PNV [id number] 30 mg iron-10 mg iron-1 mg capsule 1 cap PO DAILY Qty: 30 2RF prednisone 20 mg tablet 40 mg PO DAILY 5 Days Qty: 10 0RF albuterol sulfate 90 mcg/actuation aerosol powdr breath activated 2 inh inhalation Q20M PRN (Reason: wheezing) Qty: 1 0RF famotidine [Pepcid] 20 mg tablet 20 mg PO DAILY nifedipine 30 mg tablet extended release 24hr 30 mg PO DAILY aspirin [Adult Aspirin Regimen] 81 mg tablet,delayed release (DR/EC) 81 mg PO DAILY Print Language: Gibraltarian
--- OUTSIDE RECORDS SUMMARY | 2025-03-03 00:44 | XMS_ITS | Clinical Summary ---
Author Organization [facility] Address [address] [place] [address] Care Team Providers Care Split Leather Mosser Name Role Phone Unavailable Primary Care Provider [...]
[2025-03-03 01:03] LABS: Hematocrit 37.2 % (37.0-47.0); Hemoglobin 12.1 g/dl (12.0-16.0); Imm Gran Abs Auto 0.02 X10*3/uL (0.00-0.03); Imm Gran Pct Auto 0.2 % (0.0-0.4); Lymphocytes Absolute Auto 2.3 X10*3/uL (1.2-4.9); MANUAL DIFF FLAG NO; Mean Corpuscular HGB Conc 32.5 g/dl (31.0-35.0); Mean Corpuscular Hemoglobin 26.2 pg (27.0-33.0); Mean Corpuscular Volume 80.5 fL (80.0-98.0); NRBC Abs Auto 0.000 X10*3/uL (0.0-0.012); NRBC Pct Auto 0.0 /100WBC (0.0-0.2); Platelet Count 226 X10*3/uL (160-400); Red Blood Count 4.62 X10*6/uL (4.20-5.50); White Blood Count 9.1 X10*3/uL (4.8-10.8)
[2025-03-03 01:14] LABS: Appearance Urine Clear; Glucose Urine UA Negative (Negative); PH 5.5 (5.0-9.0); Specific Gravity - Urine 1.010 (1.005-1.025); UMIC TRIGGER UACC YES
[2025-03-03 01:15] LABS: Alanine Aminotransferase 24 U/L (0-31); Albumin Level 4.6 g/dL (3.5-5.0); Alkaline Phosphatase 104 U/L (39-117); Anion Gap 14 (12-20); Aspartate Amino Transferase 17 U/L (5-31); Blood Urea Nitrogen 11 mg/dL (9-16); Calcium 9.2 mg/dL (8.4-10.2); Carbon Dioxide 23 mmol/L (22-29); Chloride 108 mmol/L (96-108); Creatinine Clr Calc Pharmacy 158.2; Estimated Glomerular Filt Rate > 60; Potassium 3.7 mmol/L (3.3-5.1); Sodium 141 mmol/L (135-145); Total Protein 7.6 g/dL (6.5-8.0)
[2025-03-03 01:16] LABS: UPreg QC Valid YES
[2025-03-03 01:48] VITALS: BP 176/101; PULSE 112; RESP 20; O2SAT 98
--- NOTE | 2025-03-03 01:55 | P.CONOB_ITS ---
LEAD GENERATION REPRESENTATIVE - CN: HPI Data of Consult Consult date: 03/03/25 Primary Care Provider: Unknown Physician Consult Narrative Narrative: I was consulted at 01:27 am on Yulissa Smiley is a 34 year old female , presenting to the ED for evaluation complaining of lower mild pelvic pain as well as heavy vaginal bleeding that began today. Patient reports that she does not believe she has had a menstrual cycle for greater than 1 year, this morning she woke up and was having heavy vaginal bleeding associated with blood clots. The workup done in the emergency room include the following: H&H 12.,2 Blood type O negative HCG 8114 Pelvic ultrasound showed the following: Transabdominal scanning performed for overall anatomy. Transvaginal scanning performed for additional detail. Anteverted uterus is 12.5 cm length. Normal myometrium. Endometrium 2 mm thickness. Right ovary 4.3 x 2.3 x 2.3 cm. Small anechoic cyst measuring 1.2 cm. Left ovary is not visualized. Normal color Doppler with arterial/venous spectral tracing of the right ovary. No free fluid. IMPRESSION: 1. Limited examination due to body habitus. Uterus appears unremarkable. No right ovarian torsion. Left ovary is not visualized. cc:: CC: OB [facility] Past Medical History Medical History Hypertension Asthma GERD (gastroesophageal reflux disease) Morbid obesity Cervical radiculopathy Family History Family History Family/Other No problems noted. Surgical History Surgical History Hx of section Social History Social History Alcohol intake: never Patient Tobacco Use Status: Never used Tobacco Meds Allergies Allergy/AdvReac Type Severity Reaction Status Date / Time No Known Allergies Allergy Verified 03/02/25 22:49 Home Medications ?Medication ?Instructions ?Recorded ?Confirmed ?Last Taken ?Type aspirin 81 mg tablet,delayed 81 mg PO DAILY 01/10/24 1 05/13/23 03/10/24 History release (Adult Aspirin Regimen) nifedipine 30 mg tablet,extended 30 mg PO DAILY 03/12/24 03/11/24 History release 24 hr famotidine 20 mg tablet (Pepcid) 20 mg PO DAILY 03/12/24 03/11/24 History LEAD GENERATION REPRESENTATIVE Physical Exam Vitals Vital signs: Temp Pulse Resp BP Pulse Ox O2 Del Method 98.3 F 112 H 20 176/101 H 98 Room Air 03/02/25 22:41 03/03/25 01:48 03/03/25 01:48 03/03/25 01:48 03/03/25 01:48 03/03/25 01:48 BMI result Body Mass Index 49.4 Additional Comments: Reported by Leilani Clifford NP as the following: Abdomen: Soft and nontender, nondistended. No CVA tenderness bilaterally. Pelvic exam performed by Leilani Clifford NP at 02:14 showed: a small amount of blood with no clots, cervical os mildly open, no signs of retained products and pain was bleeding has resolved LEAD GENERATION REPRESENTATIVE - Results Labs 03/03/25 02:29 03/03/25 00:40 Labs: Short CBC 03/03/25 Range/Units 00:40 WBC 9.1 (4.8-10.8) X10*3/uL Hgb 12.1 D (12.0-16.0) g/dl Hct 37.2 (37.0-47.0) % Plt Count 226 (160-400) X10*3/uL BMP 03/03/25 00:40 Sodium 141 Potassium 3.7 Chloride 108 Carbon Dioxide 23 BUN 11 Creatinine 0.66 Calcium 9.2 D Liver Function 03/03/25 Range/Units 00:40 Total Bilirubin 0.3 (0.0-1.0) mg/dL AST 17 (5-31) U/L ALT 24 (0-31) U/L Alkaline Phosphatase 104 (39-117) U/L Albumin 4.6 (3.5-5.0) g/dL Urine 03/03/25 Range/Units 00:37 Urine Color Yellow Urine Appearance Clear Urine pH 5.5 (5.0-9.0) Ur Specific [place] 1.010 (1.005-1.025) Urine Protein Negative (Neg-Trace) mg/dL Urine Glucose (UA) Negative (Negative) mg/dL Urine Test POSITIVE H (NEGATIVE) Assessment and Plan (1) Bleeding in early : Status: Acute 01:34 discussed the case with Leilani Clifford NP Since hCG is 8114 with no evidence of IUP, differential diagnosis is either ectopic not visualized on ultrasound or complete SAB recommended the following: Performed Pelvic exam with GC/CT, order antibody screen and repeat pelvic ultrasound [facility] 0212-- communication from leilani Clifford re: pelvic exam showing a mildly open cervical os, with no tenderness. Only a mild amount of vaginal bleeding, no clots. Patient reports that her bleeding has significantly improved and has almost completely stopped. 4:30 am received communication regarding repeat pelvic ultrasound results which showed the following: ' Anteverted nongravid uterus. Heterogeneous endometrium 13 mm thickness. Unremarkable left ovary 3.2 x 1.8 x 2.9 cm. Only seen transabdominally. Right ovary 10.5 x 2.2 cm. There is a thick-walled cystic lesion in the right ovary averaging 9 mm diameter, previously averaging 10 mm diameter. No ascites. Impression: 1. Small cystic lesion at the right ovary again noted. This is technically indeterminate and could be an ectopic . There is no embryo demonstrated. Recommend continued beta HCG level follow-up with ultrasound as needed. 2. Unremarkable uterus with no intrauterine Recommended to VARGAS Conway in the emergency room the following: Since hCG is above 3500, with pelvic ultrasound showing no evidence of intrauterine , with a right ovarian lesion that could be an ectopic , in addition , the pelvic exam showed minimal blood per vagina, the diagnosis ectopic , the patient is a candidate for methotrexate treatment, recommended transfer the patient to [facility] since methotrexate is not available methotrexate at [facility] since there are no available RN;\'s certified for methotrexate injection I spent a total of 20 minutes reviewing the chart, communicating with the emergency room providers and documenting in the medical record.
--- NOTE | 2025-03-03 02:16 | PC.NURSE ---
Pt ambulatory to ED 26 from triage. A&Ox3 skin color wnl. Respirations even unlabored. 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 Unknown LMP. Provider to bedside for pelvic exam, tolerated well. Awaiting repeat ultrasound per OB recommendation. Aware and agreeable to plan of care.
[2025-03-03 02:35] LABS: Hematocrit 35.7 % (37.0-47.0); Hemoglobin 11.7 g/dl (12.0-16.0)
--- NOTE | 2025-03-03 05:22 | PC.NURSE ---
?Ectopic on US, plan for trasnfer to [facility]. IV access obtained. Pt remains A&Ox3 skin pwd respirations even unlabored. Denies pain at this time.
[2025-03-03 05:28] LABS: Bacterial Vaginosis PCR NEGATIVE (Negative); Candida Group PCR NOT DETECTED (Not Detect); Candida glab krusei PCR NOT DETECTED (Not Detect); Trichomonas vaginalis PCR NOT DETECTED (Not Detect)
[2025-03-03 05:44] VITALS: BP 126/60; PULSE 91; RESP 20; TEMP 36.9; O2SAT 99
[2025-03-03 06:11] LABS: CT PCR NOT DETECTED (Not Detect.); NG PCR NOT DETECTED (Not Detect.)
--- NOTE | 2025-03-03 06:17 | PC.NURSE ---
EMS arrival for transport.
[2025-03-03 07:24] VITALS: BP 126/60; PULSE 91; RESP 20; TEMP 36.9; O2SAT 99
== END 2025-03-03 07:26 | disposition short-term general hospital (02) ==
PROVIDERS: Nurse Practitioner; Emergency Provider Emergency Medicine Emergency Medical Services
DX: O00.201 Right ovarian pregnancy without intrauterine pregnancy (principal); I10 Essential (primary) hypertension; K21.9 Gastro-esophageal reflux disease without esophagitis; J45.909 Unspecified asthma, uncomplicated; Z20.2 Contact with and (suspected) exposure to infections with a predominantly sexual mode of transmission
CPT/HCPCS: 36415; 76801; 76817; 76830; 76856; 80053; 81001; 81025; 81515; 84702; 85014; 85018; 85025; 86850; 86900; 86901; 87491; 87591; 99285

== ENCOUNTER → 2025-03-02 22:51 | Outpatient (BNV) | payer SELFPAY | PROVIDERS: Emergency Provider Emergency Medicine Emergency Medical Services; Visit Provider Student in an Organized Health Care Education/Training Program | DX: N93.9 Abnormal uterine and vaginal bleeding, unspecified (principal) | CPT/HCPCS: 76830; 76856 ==

== ENCOUNTER → 2025-03-03 00:39 | Outpatient (BNV) | payer SELFPAY | PROVIDERS: Emergency Provider Emergency Medicine Emergency Medical Services; Visit Provider Obstetrics & Gynecology | DX: O20.9 Hemorrhage in early pregnancy, unspecified (principal) | CPT/HCPCS: 99283 ==

== ENCOUNTER → 2025-03-03 01:56 | Outpatient (BNV) | payer SELFPAY | PROVIDERS: Emergency Provider Emergency Medicine Emergency Medical Services; Visit Provider Radiology Diagnostic Radiology | DX: R10.20 Pelvic and perineal pain unspecified side (principal); O20.9 Hemorrhage in early pregnancy, unspecified | CPT/HCPCS: 76801; 76817 ==